=== PATIENT | male | born 1980 | race Caucasian/White ===

== ENCOUNTER 2017-03-15 22:58 | Inpatient (IN) | payer OTHER ==
[~2017-03-15] VITALS: Ht 175.3 cm; Wt 79.7 kg
[~2017-03-15 22:58] MED LIST: CLON.5 PO; DIVA250ER PO; REME30TA2 PO; RISP2TAB2 PO
[2017-03-15 23:04] VITALS: BP 146/84; PULSE 78; RESP 18; TEMP 97.8; O2SAT 98
[2017-03-15] MEDS ORDERED: CLON.5 PO (23:11)
[2017-03-15] MEDS ORDERED: REME30TA PO (23:11)
[2017-03-15 23:15] VITALS: RESP 18; O2SAT 97
[2017-03-15] MEDS ORDERED: SODIUM CHLORIDE 0.9% FLUSH 10 ML FLUSH IVF PRN (23:15)
[2017-03-15 23:16] VITALS: BP 122/61; PULSE 68; RESP 18; O2SAT 97
--- NOTE | 2017-03-15 23:16 | PD ---
HPI Chief Complaint: OD/ Ingestion Time Seen by Provider: 23:12 Travel History International Travel<30 days: No Contact w/Intl Traveler<30days: No Traveled to known affect area: No History of Present Illness HPI 36-year-old male presents to the emergency department by EMS transport from home after calling 911 admitting to an intentional trazodone overdose. Patient reportedly took the entire one-month supply of trazodone around 9:30 PM this evening. Patient is a and is followed at the OR for posttraumatic stress disorder. Patient is been suicidal and depressed. Patient intentionally ingested an entire bottle of trazodone. Patient does not know the dosage of the medication had the prescription filled at the OR and does not do the date that he had the prescription filled reportedly. Patient also admits to alcohol ingestion. Patient takes other multiple medications but denies ingestion of these medications. Patient called the police himself and he has a Young act. Patient was given a one-time dose of Zofran en route to the hospital had a small amount of loose stool. Patient has chronic back pain and complains of no other concerns or complaints. PFSH Past Medical History Narrative Medical Asthma, bipolar/anxiety depression, insomnia, post traumatic stress disorder, schizophrenia, vasectomy tonsillectomy; tobacco use alcohol use; nursing notes reviewed Asthma: Yes Bipolar Disorder: Yes Anxiety: Yes Depression: Yes Diminished Hearing: No Insomnia: Yes Psychiatric: Yes Immunizations Current: Yes Schizophrenia: Yes Past Surgical History Other Surgery: Yes (VASECTOMY) Social History Alcohol Use: Yes (RARELY) Tobacco Use: Yes (1 PPD) Substance Use: Yes Allergies-Medications (Allergen,Severity, Reaction): Coded Allergies: bupropion (Verified Allergy, Severe, 03/15/17) tramadol (Verified Allergy, Severe, 03/15/17) Reported Meds & Prescriptions Reported Meds & Active Scripts Active Reported Klonopin (Clonazepam) 0.5 Mg Tab 0.5 Mg PO TID Remeron (Mirtazapine) 30 Mg Tab 30 Mg PO HS Review of Systems Except as stated in HPI: all other systems reviewed are Neg Physical Exam Narrative GENERAL: Well-developed well-nourished male in no acute distress no respiratory distress mildly drowsy GCS 15 SKIN: Warm and dry. HEAD: Atraumatic. Normocephalic. EYES: Pupils equal and round. No scleral icterus. No injection or drainage. ENT: No nasal bleeding or discharge. Mucous membranes pink and moist. NECK: Trachea midline. No JVD. CARDIOVASCULAR: Regular rate and rhythm. RESPIRATORY: No accessory muscle use. Clear to auscultation. Breath sounds equal bilaterally. GASTROINTESTINAL: Abdomen soft, non-tender, nondistended. Hepatic and splenic margins not palpable. MUSCULOSKELETAL: Extremities without clubbing, cyanosis, or edema. No obvious deformities. NEUROLOGICAL: Awake and alert. No obvious cranial nerve deficits. Motor grossly within normal limits. Five out of 5 muscle strength in the arms and legs. Normal speech. PSYCHIATRIC: Appropriate mood and affect; insight and judgment normal. Data Data Last Documented VS Vital Signs Date Time Temp Pulse Resp B/P (MAP) Pulse Ox O2 Delivery O2 Flow Rate FiO2 03/16/17 02:43 74 18 140/82 (101) 99 Nasal Cannula 2.00 03/15/17 23:04 97.8 Orders Orders Electrocardiogram (03/15/17 23:12) Complete Blood Count With Diff (03/15/17 23:12) Comprehensive Metabolic Panel (03/15/17 23:12) Prothrombin Time / Inr (Pt) (03/15/17 23:12) Act Partial Throm Time (Ptt) (03/15/17 23:12) Urinalysis - C+S If Indicated (03/15/17 23:12) Chest, Single Ap (03/15/17 23:12) Blood Glucose (03/15/17 23:12) Iv Access Insert/Monitor (03/15/17 23:12) Ecg Monitoring (03/15/17 23:12) Oximetry (03/15/17 23:12) Psych Screen (03/15/17 23:12) Sodium Chloride 0.9% Flush (Ns Flush) (03/15/17 23:15) Call Poison Control (03/15/17 23:12) Drug Screen, Random Urine (03/15/17 23:12) Alcohol (Ethanol) (03/15/17 23:12) Salicylates (Aspirin) (03/15/17 23:12) Tylenol (Acetaminophen) (03/15/17 23:12) Sodium Chlor 0.9% 1000 Ml Inj (Ns 1000 M (03/15/17 23:15) Potassium Chloride (Kcl) (03/16/17 01:00) Potassium Chlor 10 Meq Premix (Kcl 10 Me (03/16/17 01:00) Electrocardiogram (03/16/17 ) Comprehensive Metabolic Panel (03/16/17 03:18) Tylenol (Acetaminophen) (03/16/17 03:18) Labs Laboratory Tests Test 03/15/17 23:10 03/15/17 23:15 03/16/17 03:21 Urine Color COLORLESS Urine Turbidity CLEAR Urine pH 6.0 Urine Specific [place] 1.001 Urine Protein NEG mg/dL Urine Glucose (UA) NEG mg/dL Urine Ketones NEG mg/dL Urine Occult Blood NEG Urine Nitrite NEG Urine Bilirubin NEG Urine Urobilinogen LESS THAN 2.0 MG/DL Urine Leukocyte Esterase NEG Urine RBC LESS THAN 1 /hpf Urine WBC 1 /hpf Microscopic Urinalysis Comment CULT NOT INDICATED Urine Opiates Screen NEG Urine Barbiturates Screen NEG Urine Amphetamines Screen NEG Urine Benzodiazepines Screen NEG Urine Cocaine Screen NEG Urine Cannabinoids Screen NEG White Blood Count 11.5 TH/MM3 Red Blood Count 4.84 MIL/MM3 Hemoglobin 13.9 GM/DL Hematocrit 39.8 % Mean Corpuscular Volume 82.2 FL Mean Corpuscular Hemoglobin 28.7 PG Mean Corpuscular Hemoglobin Concent 34.9 % Red Cell Distribution Width 13.0 % Platelet Count 316 TH/MM3 Mean Platelet Volume 6.5 FL Neutrophils (%) (Auto) 69.9 % Lymphocytes (%) (Auto) 22.5 % Monocytes (%) (Auto) 5.3 % Eosinophils (%) (Auto) 1.5 % Basophils (%) (Auto) 0.8 % Neutrophils # (Auto) 8.0 TH/MM3 Lymphocytes # (Auto) 2.6 TH/MM3 Monocytes # (Auto) 0.6 TH/MM3 Eosinophils # (Auto) 0.2 TH/MM3 Basophils # (Auto) 0.1 TH/MM3 CBC Comment DIFF FINAL Differential Comment Prothrombin Time 11.8 SEC Prothromb Time International Ratio 1.1 RATIO Activated Partial Thromboplast Time 28.1 SEC Blood Urea Nitrogen 3 MG/DL 3 MG/DL Creatinine 0.81 MG/DL 0.87 MG/DL Random Glucose 99 MG/DL 99 MG/DL Total Protein 7.2 GM/DL 7.0 GM/DL Albumin 3.5 GM/DL 3.3 GM/DL Calcium Level 8.2 MG/DL 8.0 MG/DL Alkaline Phosphatase 74 U/L 77 U/L Aspartate Amino Transf (AST/SGOT) 13 U/L 12 U/L Alanine Aminotransferase (ALT/SGPT) 17 U/L 19 U/L Total Bilirubin 0.2 MG/DL 0.2 MG/DL Sodium Level 140 MEQ/L 144 MEQ/L Potassium Level 2.9 MEQ/L 3.7 MEQ/L Chloride Level 107 MEQ/L 112 MEQ/L Carbon Dioxide Level 22.9 MEQ/L 23.9 MEQ/L Anion Gap 10 MEQ/L 8 MEQ/L Estimat Glomerular Filtration Rate 107 ML/MIN 99 ML/MIN Salicylates Level 4.3 MG/DL Acetaminophen Level LESS THAN 2.0 MCG/ML LESS THAN 2.0 MCG/ML Ethyl Alcohol Level 184 MG/DL MDM Medical Decision Making Medical Screen Exam Complete: Yes Emergency Medical Condition: Yes Medical Record Reviewed: Yes Interpretation(s) EKG normal sinus rhythm rate [address] elevation nonspecific T-wave abnormality anteroseptally CBC & BMP Diagram 03/15/17 23:15 Total Protein 7.2, Albumin 3.5, Calcium Level 8.2 L, Alkaline Phosphatase 74, Aspartate Amino Transf (AST/SGOT) 13 L, Alanine Aminotransferase (ALT/SGPT) 17, Total Bilirubin 0.2 Vital Signs Date Time Temp Pulse Resp B/P (MAP) Pulse Ox O2 Delivery O2 Flow Rate FiO2 03/16/17 01:40 74 16 135/74 (94) 98 Room Air 03/15/17 23:47 69 18 141/82 (101) 97 Room Air 03/15/17 23:16 68 18 122/61 (81) 97 Room Air 03/15/17 23:15 18 97 Room Air 03/15/17 23:04 97.8 78 18 146/84 (104) 98 Serum alcohol: 184, elevated Urine drug screen is negative Acetaminophen level less than 2, not elevated Salicylate level IV.3, not elevated Differential Diagnosis Polysubstance overdose, alcohol intoxication, suicidal ideation, depression, arrhythmia, likely disturbance Narrative Course Patient placed on media monitor IV access obtained specimens collected and sent for resulting bedside glucose ordered along with EKG which shows sinus rhythm no acute ST elevation nonspecific T-wave inversion without ST segment depression anteroseptally. Poison control called Patient resting comfortably readily awakened able to tolerate oral hydration and oral potassium replacement administered along with 1 aliquot 10 mEq KCl IV Patient administered IV fluids Lab results found to be grossly within normal range except for potassium of 2.9 and elevated serum alcohol level; magnesium level pending Patient sleeping off serum alcohol of 250 Patient @ 1:50 identified to have serum magnesium 1.01 g magnesium administered IV @ 3:17 UOOB ro BR; EKG sinus rhythm rate 73 nonspecific T-wave changes no acute ST elevation or injury pattern; poison control up-to-date At 5:16 AM patient is sleeping awakened still name answers questions appropriately when asked how he feels feels reports "I'm tired" Diagnosis Primary Impression: Alcohol intoxication Additional Impressions: Minor closed head injury Electrolyte disturbance Ivonne Aguilar MD Mar 15, 2017 23:16
[2017-03-15] MEDS: SODIUM CHLOR 0.9% 1000 ML INJ 1,000 ML IV SCH (23:19)
[2017-03-15 23:33] LABS: BASOPHIL # 0.1 TH/MM3 (0-0.2); BASOPHIL % 0.8 % (0.0-2.0); EOSINOPHIL # 0.2 TH/MM3 (0-0.4); EOSINOPHIL % 1.5 % (0.0-4.0); HEMATOCRIT 39.8 % (39.0-51.0); HEMO FLAGS DIFF FINAL; LYMPH % 22.5 % (9.0-44.0); LYMPHOCYTE # 2.6 TH/MM3 (1.0-4.8); MEAN CELL VOLUME 82.2 FL (80.0-100.0); MEAN CORPUSCULAR HEMOGLOBIN 28.7 PG (27.0-34.0); MEAN CORPUSCULAR HGB CONC 34.9 % (32.0-36.0); MONO % 5.3 % (0.0-8.0); NEUT % 69.9 % (16.0-70.0); PLATELET COUNT 316 TH/MM3 (150-450); RED BLOOD COUNT 4.84 MIL/MM3 (4.50-5.90); WHITE BLOOD COUNT 11.5 TH/MM3 (4.0-11.0)
[2017-03-15 23:42] LABS: BLOOD, URINE NEG (NEG); GLUCOSE,URINE NEG (NEG); KETONE, URINE NEG (NEG); NITRITE,URINE NEG (NEG); URINE COLOR COLORLESS (YELLW/STRAW)
[2017-03-15 23:43] LABS: COMMENT (UR) CULT NOT INDICATED; CULTURE IF INDICATED CULT NOT INDICATED
[2017-03-15 23:47] VITALS: BP 141/82; PULSE 69; RESP 18; O2SAT 97
[2017-03-15 23:47] LABS: APTT (PATIENT) 28.1 SEC (24.3-30.1); INTERNATIONAL NORMALIZED RATIO 1.1 RATIO; PROTHROMBIN TIME - PATIENT 11.8 SEC (9.8-11.6)
--- NOTE | 2017-03-15 23:51 | RADRPT ---
EXAM DATE/TIME: 03/15/2017 23:14 [facility] COMPARISON: No previous studies available for comparison. INDICATIONS : Syncopal episode. MEDICAL HISTORY : None. SURGICAL HISTORY : None. ENCOUNTER: Initial ACUITY: 1 day PAIN SCORE: 0/10 LOCATION: Bilateral chest FINDINGS: A single view of the chest demonstrates the lungs to be symmetrically aerated without evidence of mas s, infiltrate or effusion. The cardiomediastinal contours are unremarkable. Osseous structures are intact. CONCLUSION: 1. No acute cardiopulmonary disease. Jeffry Ashton MD on March 15, 2017 at 23:49 Board Certified Radiologist. This report was verified electronically.
[2017-03-16 00:23] LABS: ACETAMINOPHEN LESS THAN 2.0 MCG/ML (10.0-30.0); ALCOHOL 184 MG/DL (0-5); ALKALINE PHOSPHATASE 74 U/L (45-117); ALT (GPT) 17 U/L (12-78); ANION GAP 10 MEQ/L (5-15); AST (GOT) 13 U/L (15-37); BICARBONATE 22.9 MEQ/L (21.0-32.0); BLOOD UREA NITROGEN 3 MG/DL (7-18); CHLORIDE 107 MEQ/L (98-107); GLOMERULAR FILTRATION RATE 107 ML/MIN (>89); SODIUM (NA) 140 MEQ/L (136-145); TOTAL BILIRUBIN ADULT 0.2 MG/DL (0.2-1.0)
[2017-03-16 00:25] LABS: POTASSIUM 2.9 MEQ/L (3.5-5.1)
[2017-03-16] MEDS ORDERED: POTASSIUM CHLOR 10 MEQ PREMIX 100 ML IV ONE (01:00)
[2017-03-16] MEDS ORDERED: POTASSIUM CHLORIDE 20 MEQ CONTROLLED RELEASE TAB PO ONE (01:00)
[2017-03-16 01:40] VITALS: BP 135/74; PULSE 74; RESP 16; O2SAT 98
[2017-03-16 02:43] VITALS: BP 140/82; PULSE 74; RESP 18; O2SAT 99
[2017-03-16 04:04] LABS: ACETAMINOPHEN LESS THAN 2.0 MCG/ML (10.0-30.0); ALKALINE PHOSPHATASE 77 U/L (45-117); ALT (GPT) 19 U/L (12-78); ANION GAP 8 MEQ/L (5-15); AST (GOT) 12 U/L (15-37); BICARBONATE 23.9 MEQ/L (21.0-32.0); BLOOD UREA NITROGEN 3 MG/DL (7-18); CHLORIDE 112 MEQ/L (98-107); GLOMERULAR FILTRATION RATE 99 ML/MIN (>89); POTASSIUM 3.7 MEQ/L (3.5-5.1); SODIUM (NA) 144 MEQ/L (136-145); TOTAL BILIRUBIN ADULT 0.2 MG/DL (0.2-1.0)
[2017-03-16 06:15] VITALS: BP 134/74; PULSE 74; RESP 18; O2SAT 97
[2017-03-16 06:57] VITALS: BP 125/59; PULSE 70; RESP 18; O2SAT 100
[2017-03-16] MEDS: SODIUM CHLOR 0.9% 1000 ML INJ 1,000 ML IV SCH ×3 (07:15→23:15)
[2017-03-16 10:46] VITALS: BP 128/65; PULSE 73; RESP 18
--- NOTE | 2017-03-16 12:58 | PD ---
History of Present Illness Chief Complaint: OD/ Ingestion Time Seen by Provider: 12:40 Travel History International Travel<30 Days: No Contact w/Intl Traveler<30days: No Known affected area: No Legal Status Legal Status: Young Act Young Act Signed By: Damián Young Act Comment: OFFICER RENEE AYALA #[id number] CASE # [id number] History of Present Illness: History of Present Illness HPI 36-year-old male [employer] with history of PTSD, depression who presents to the emergency department by EMS under a Young act. The report alleges that he called 911 requesting help because he was having suicidal thoughts. When police arrived he informed them he had overdosed on " a whole month worth of Trazodone" as a suicide attempt. He reports that earlier in the day there was a helicopter flying over his home and he began to experience flashbacks that " set me off". He also drank some alcohol during the day and presented with BAL of 184. He denies that he drinks on a daily basis. He reports that he has been feeling overwhelmed with caring for his grandparents, is experiencing impaired sleep with difficulty falling asleep and staying asleep, increased irritability, lack of energy. He feels that his current medications are not working to manage his current symptoms. He is followed by the [place] outpatient clinic and reports medication compliance. . PFSH Past Medical History Asthma: Yes Bipolar Disorder: Yes Anxiety: Yes Depression: Yes Diminished Hearing: No Hypertension: Yes Insomnia: Yes Psychiatric: Yes Immunizations Current: Yes Schizophrenia: Yes Seizures: Yes Tetanus Vaccination: > 5 Years Influenza Vaccination: Yes Past Surgical History Other Surgery: Yes (VASECTOMY) Psychiatric History Psychiatric History Hx Psychiatric Treatment: HX. OF PTSD, MAJOR DEPRESSION, BIPOLAR Has had at least 6 lifetime psychiatric admissions with multiple young acts. Last [facility] [place] [place] psychiatric admission in 2012. Now followed by [place] outpatiet[place] clincic. Six previous suicide attempts. History of Inpatient Treatment: Yes ([place] and [place].) Guns or firearms in home: No Social History Born in [place]. . Living with grandparents. Served in the [employer] from 2003 to 2009. On service connected disability. Hx Alcohol Use: Yes Hx Tobacco Use: Yes (1/2 PPD) Hx Substance Use: No Substance Use Type: Alcohol Hx of Substance Use Treatment: No Family Psychiatric History Father w PTSD, schizophrenia Allergies-Medications (Allergen,Severity, Reaction): Coded Allergies: bupropion (Verified Allergy, Severe, 03/15/17) tramadol (Verified Allergy, Severe, 03/15/17) Reported Meds & Prescriptions Reported Meds & Active Scripts Active Reported Klonopin (Clonazepam) 0.5 Mg Tab 0.5 Mg PO TID Remeron (Mirtazapine) 30 Mg Tab 30 Mg PO HS Review of Systems Gastrointestinal: COMPLAINS OF: Abdominal pain, Diarrhea Musculoskeletal: COMPLAINS OF: Joint pain, Back pain, Neck pain Mental Status Examination Appearance: Appropriate (dressed in [facility]. Maintaining basic hygiene. ) Consciousness: Alert Orientation: x4 Motor Activity: Normal gait Speech: Unremarkable Language: Adequate Fund of Knowledge: Adequate Attention and Concentration: Adequate Memory: Unremarkable Mood: Other (depressed) Affect: Appropriate Thought Process & Associations: Intact, Logical, Goal directed Thought Content: Appropriate Hallucination Type: None Delusion Type: None Suicidal Ideation: Yes Suicidal Plan: Yes Suicidal Intention: No Homicidal Ideation: No Homicidal Plan: No Homicidal Intention: No Insight: Fair Judgment: Impulsive MDM Medical Decision Making Medical Record Reviewed: Yes Assessment/Plan 36-year-old male [employer] with history of PTSD, depression who presents to the emergency department by EMS under a Young act. The report alleges that he called 911 requesting help because he was having suicidal thoughts. When police arrived he informed them he had overdosed on " a whole month worth of Trazodone" as a suicide attempt. He reports that earlier in the day there was a helicopter flying over his home and he began to experience flashbacks that " set me off". He also drank some alcohol during the day and presented with BAL of 184. He denies that he drinks on a daily basis. He reports that he has been feeling overwhelmed with caring for his grandparents, is experiencing impaired sleep with difficulty falling asleep and staying asleep, increased irritability, lack of energy. He feels that his current medications are not working to manage his current symptoms. Satishn unable to contract for his safety at [facility] time. Meets criteria for inpatient psychiatric treatment for stabilization and safety. Orders Orders Electrocardiogram (03/15/17 23:12) Complete Blood Count With Diff (03/15/17 23:12) Comprehensive Metabolic Panel (03/15/17 23:12) Prothrombin Time / Inr (Pt) (03/15/17 23:12) Act Partial Throm Time (Ptt) (03/15/17 23:12) Urinalysis - C+S If Indicated (03/15/17 23:12) Chest, Single Ap (03/15/17 23:12) Blood Glucose (03/15/17 23:12) Iv Access Insert/Monitor (03/15/17 23:12) Ecg Monitoring (03/15/17 23:12) Oximetry (03/15/17 23:12) Psych Screen (03/15/17 23:12) Sodium Chloride 0.9% Flush (Ns Flush) (03/15/17 23:15) Call Poison Control (03/15/17 23:12) Drug Screen, Random Urine (03/15/17 23:12) Alcohol (Ethanol) (03/15/17 23:12) Salicylates (Aspirin) (03/15/17 23:12) Tylenol (Acetaminophen) (03/15/17 23:12) Sodium Chlor 0.9% 1000 Ml Inj (Ns 1000 M (03/15/17 23:15) Potassium Chloride (Kcl) (03/16/17 01:00) Potassium Chlor 10 Meq Premix (Kcl 10 Me (03/16/17 01:00) Electrocardiogram (03/16/17 ) Comprehensive Metabolic Panel (03/16/17 03:18) Tylenol (Acetaminophen) (03/16/17 03:18) Diet Regular Basic (03/16/17 Breakfast) Diet Regular Basic (03/16/17 Lunch) Dicyclomine (Bentyl) (03/16/17 13:00) Acetaminophen (Tylenol) (03/16/17 13:00) Results Vital Signs Date Time Temp Pulse Resp B/P (MAP) Pulse Ox O2 Delivery O2 Flow Rate FiO2 03/16/17 10:46 73 18 128/65 (86) Room Air 03/16/17 06:57 70 18 125/59 (81) 100 Room Air 03/16/17 06:44 03/16/17 06:15 74 18 134/74 (94) 97 Room Air 03/16/17 02:43 74 18 140/82 (101) 99 Nasal Cannula 2.00 03/16/17 01:40 74 16 135/74 (94) 98 Room Air 03/15/17 23:47 69 18 141/82 (101) 97 Room Air 03/15/17 23:16 68 18 122/61 (81) 97 Room Air 03/15/17 23:15 18 97 Room Air 03/15/17 23:04 97.8 78 18 146/84 (104) 98 Laboratory Tests Test 03/15/17 23:10 03/15/17 23:15 03/16/17 03:21 Urine Color COLORLESS Urine Turbidity CLEAR Urine pH 6.0 Urine Specific [place] 1.001 Urine Protein NEG Urine Glucose (UA) NEG Urine Ketones NEG Urine Occult Blood NEG Urine Nitrite NEG Urine Bilirubin NEG Urine Urobilinogen LESS THAN 2.0 Urine Leukocyte Esterase NEG Urine RBC LESS THAN 1 Urine WBC 1 Microscopic Urinalysis Comment CULT NOT INDICATED Urine Opiates Screen NEG Urine Barbiturates Screen NEG Urine Amphetamines Screen NEG Urine Benzodiazepines Screen NEG Urine Cocaine Screen NEG Urine Cannabinoids Screen NEG White Blood Count 11.5 Red Blood Count 4.84 Hemoglobin 13.9 Hematocrit 39.8 Mean Corpuscular Volume 82.2 Mean Corpuscular Hemoglobin 28.7 Mean Corpuscular Hemoglobin Concent 34.9 Red Cell Distribution Width 13.0 Platelet Count 316 Mean Platelet Volume 6.5 Neutrophils (%) (Auto) 69.9 Lymphocytes (%) (Auto) 22.5 Monocytes (%) (Auto) 5.3 Eosinophils (%) (Auto) 1.5 Basophils (%) (Auto) 0.8 Neutrophils # (Auto) 8.0 Lymphocytes # (Auto) 2.6 Monocytes # (Auto) 0.6 Eosinophils # (Auto) 0.2 Basophils # (Auto) 0.1 CBC Comment DIFF FINAL Differential Comment Prothrombin Time 11.8 Prothromb Time International Ratio 1.1 Activated Partial Thromboplast Time 28.1 Blood Urea Nitrogen 3 3 Creatinine 0.81 0.87 Random Glucose 99 99 Total Protein 7.2 7.0 Albumin 3.5 3.3 Calcium Level 8.2 8.0 Alkaline Phosphatase 74 77 Aspartate Amino Transf (AST/SGOT) 13 12 Alanine Aminotransferase (ALT/SGPT) 17 19 Total Bilirubin 0.2 0.2 Sodium Level 140 144 Potassium Level 2.9 3.7 Chloride Level 107 112 Carbon Dioxide Level 22.9 23.9 Anion Gap 10 8 Estimat Glomerular Filtration Rate 107 99 Salicylates Level 4.3 Acetaminophen Level LESS THAN 2.0 LESS THAN 2.0 Ethyl Alcohol Level 184 Diagnosis Primary Impression: PTSD (post-traumatic stress disorder) Additional Impression: Alcohol intoxication Admitting Information Admitting Physician Requests: Admit Problem Qualifiers Additional Impression: Alcohol intoxication Qualified Codes: F10.920 - Alcohol use, unspecified with intoxication, uncomplicated Jyothi Tse [facility] Mar 16, 2017 12:57
[2017-03-16] MEDS ORDERED: ACETAMINOPHEN 325 MG TAB PO ONE (13:00)
[2017-03-16] MEDS ORDERED: DICYCLOMINE HCL 10 MG CAP PO ONE (13:00)
[2017-03-16] MEDS ORDERED: ONDANSETRON ODT 4 MG TAB PO ONE ×2 (13:45→20:30)
[2017-03-16] MEDS ORDERED: ACETAMINOPHEN 325 MG TAB PO PRN (14:00)
[2017-03-16] MEDS ORDERED: MAGNESIUM HYDROXIDE SUSP 30 ML CUP PO PRN (14:00)
[2017-03-16] MEDS ORDERED: ALUMINUM/MAGNESIUM/SIMETH 30 ML CUP PO PRN (14:00)
[2017-03-16 15:50] VITALS: BP 139/75; PULSE 71; RESP 17; TEMP 97.9; O2SAT 99
[2017-03-16] MEDS ORDERED: ALUMINUM/MAGNESIUM/SIMETH 30 ML CUP PO ONE (17:00)
[2017-03-16] MEDS: PANTOPRAZOLE SOD 40 MG DELAYED RELEASE TAB PO SCH (17:00)
--- NOTE | 2017-03-16 17:03 | PD.CONS ---
HPI Service [facility] Consult Requested By Psychiatry team Reason for Consult Abdominal pain, overdose on trazodone Primary Care Physician [facility] Diagnoses: History of Present Illness Written by Abdiel Negrete, acting as scribe for Dr. Tran on 03/16/17 at 17 :03. Patient is a 36-year-old male with primary medical history of PTSD, asthma who came into the hospital under [place] act secondary to trazodone overdose. He is now admitted to inpatient psychiatry unit for further evaluation. Consulted for abdominal pain, diarrhea. Patient seen and examined today. Complaints of abdominal pain left lower quadrant area, 10 over 10, associated with nausea, vomiting, diarrhea, nonradiating, aggravated by movement, unable to know what relieves the pain. States the diarrhea started about 2 days ago. Reports being cold but doesn't remember having fevers. States that he he felt the abdominal pain is the same when he had his colon Infected before states it was diverticulitis about 2-3 years ago. Reports acid reflux. Denies chest pain, palpitations, headaches, dizziness. Denies dysuria. Denies shortness of breath or dyspnea. Review of Systems Except as stated in HPI: all other systems reviewed are Neg Past Family Social History Allergies: Coded Allergies: bupropion (Verified Allergy, Severe, 03/15/17) tramadol (Verified Allergy, Severe, 03/15/17) Past Medical History PTSD Asthma Bipolar disorder Acid reflux Diverticulitis Past Surgical History Vasectomy Neck fusion C5 to C6 Shoulder surgery Reported Medications Reported Meds & Active Scripts Active Reported Klonopin (Clonazepam) 0.5 Mg Tab 0.5 Mg PO TID Remeron (Mirtazapine) 30 Mg Tab 30 Mg PO HS Active Ordered Medications Current Medications Medications (Trade) Dose Ordered Sig/Ty Route Start Time Stop Time Status Last Admin (NS Flush) 2 ml UNSCH PRN IVF 03/15/17 23:15 Sodium Chloride 1,000 ml @ 125 mls/hr Q8H IV 03/15/17 23:15 03/15/17 23:19 (Tylenol) 650 mg Q4H PRN PO 03/16/17 14:00 (Milk Of Magnesia Liq) 30 ml DAILY PRN PO 03/16/17 14:00 (Mag-Al Plus Susp Liq) 30 ml Q6H PRN PO 03/16/17 14:00 (Mag-Al Plus Susp Liq) 30 ml ONCE ONCE PO 03/16/17 17:00 03/16/17 17:01 UNV (Protonix) 40 mg DAILY PO 03/16/17 17:00 UNV Family History Father had PTSD Social History Rare alcohol use but reports drank 3-4 beers prior to hospitalization Current a smoker, 2 pack per day Denies illicit drug use Physical Exam Vital Signs Vital Signs Date Time Temp Pulse Resp B/P (MAP) Pulse Ox O2 Delivery O2 Flow Rate FiO2 03/16/17 15:50 97.9 71 17 139/75 (96) 99 03/16/17 10:46 73 18 128/65 (86) Room Air 03/16/17 06:57 70 18 125/59 (81) 100 Room Air 03/16/17 06:44 03/16/17 06:15 74 18 134/74 (94) 97 Room Air 03/16/17 02:43 74 18 140/82 (101) 99 Nasal Cannula 2.00 03/16/17 01:40 74 16 135/74 (94) 98 Room Air 03/15/17 23:47 69 18 141/82 (101) 97 Room Air 03/15/17 23:16 68 18 122/61 (81) 97 Room Air 03/15/17 23:15 18 97 Room Air 03/15/17 23:04 97.8 78 18 146/84 (104) 98 Physical Exam GENERAL: This is a well-nourished, well-developed patient, in no apparent distress. SKIN: Warm and dry. HEAD: Atraumatic. Normocephalic. No temporal or scalp tenderness. EYES: Pupils equal round and reactive. Extraocular motions intact. No scleral icterus. No injection or drainage. ENT: Nose without bleeding. Throat without erythema. Uvula midline. Airway patent. NECK: Trachea midline. No JVD or lymphadenopathy. Supple, nontender, no meningeal signs. CARDIOVASCULAR: Regular rate and rhythm without murmurs, gallops, or rubs. RESPIRATORY: Clear to auscultation. Breath sounds equal bilaterally. No wheezes , rales, or rhonchi. GASTROINTESTINAL: Abdomen soft, nondistended. Left lower quadrant tender to light touch. Right quadrant nontender. MUSCULOSKELETAL: Extremities without clubbing, cyanosis, or edema. NEUROLOGICAL: Awake and alert. Cranial nerves II through XII intact. Motor and sensory grossly within normal limits. Normal speech. Laboratory Laboratory Tests Test 03/15/17 23:10 03/15/17 23:15 03/16/17 03:21 Urine Color COLORLESS Urine Turbidity CLEAR Urine pH 6.0 Urine Specific [place] 1.001 Urine Protein NEG Urine Glucose (UA) NEG Urine Ketones NEG Urine Occult Blood NEG Urine Nitrite NEG Urine Bilirubin NEG Urine Urobilinogen LESS THAN 2.0 Urine Leukocyte Esterase NEG Urine RBC LESS THAN 1 Urine WBC 1 Microscopic Urinalysis Comment CULT NOT INDICATED Urine Opiates Screen NEG Urine Barbiturates Screen NEG Urine Amphetamines Screen NEG Urine Benzodiazepines Screen NEG Urine Cocaine Screen NEG Urine Cannabinoids Screen NEG White Blood Count 11.5 Red Blood Count 4.84 Hemoglobin 13.9 Hematocrit 39.8 Mean Corpuscular Volume 82.2 Mean Corpuscular Hemoglobin 28.7 Mean Corpuscular Hemoglobin Concent 34.9 Red Cell Distribution Width 13.0 Platelet Count 316 Mean Platelet Volume 6.5 Neutrophils (%) (Auto) 69.9 Lymphocytes (%) (Auto) 22.5 Monocytes (%) (Auto) 5.3 Eosinophils (%) (Auto) 1.5 Basophils (%) (Auto) 0.8 Neutrophils # (Auto) 8.0 Lymphocytes # (Auto) 2.6 Monocytes # (Auto) 0.6 Eosinophils # (Auto) 0.2 Basophils # (Auto) 0.1 CBC Comment DIFF FINAL Differential Comment Prothrombin Time 11.8 Prothromb Time International Ratio 1.1 Activated Partial Thromboplast Time 28.1 Blood Urea Nitrogen 3 3 Creatinine 0.81 0.87 Random Glucose 99 99 Total Protein 7.2 7.0 Albumin 3.5 3.3 Calcium Level 8.2 8.0 Alkaline Phosphatase 74 77 Aspartate Amino Transf (AST/SGOT) 13 12 Alanine Aminotransferase (ALT/SGPT) 17 19 Total Bilirubin 0.2 0.2 Sodium Level 140 144 Potassium Level 2.9 3.7 Chloride Level 107 112 Carbon Dioxide Level 22.9 23.9 Anion Gap 10 8 Estimat Glomerular Filtration Rate 107 99 Salicylates Level 4.3 Acetaminophen Level LESS THAN 2.0 LESS THAN 2.0 Ethyl Alcohol Level 184 Result Diagram: 03/15/17 5620 03/16/17 0321 Imaging Last Impressions Chest X-Ray 03/15/17 1387 Signed Impressions: Service Date/Time: Wednesday, March 15, 2017 23:14 - CONCLUSION: 1. No acute cardiopulmonary disease. Jeffry Ashton MD Assessment and Plan Problem List: (1) GERD (gastroesophageal reflux disease) ICD Code: K21.9 - Gastro-esophageal reflux disease without esophagitis (2) Tobacco abuse ICD Code: Z72.0 - Tobacco use (3) PTSD (post-traumatic stress disorder) ICD Code: F43.10 - PTSD (post-traumatic stress disorder) Status: Acute (4) Alcohol intoxication ICD Code: F10.929 - Alcohol use, unspecified with intoxication, unspecified Status: Acute Assessment and Plan Patient is a 36-year-old male with primary medical history of PTSD, asthma who came into the hospital under [place] act secondary to trazodone overdose. He is now admitted to inpatient psychiatry unit for further evaluation. Consulted for abdominal pain, diarrhea. Overdose on trazodone - Labs reviewed chemistry within normal except for hypokalemia when patient came in. Has been replaced and now within normal - EKG 73, sinus rhythm with sinus arrhythmia nonspecific T-wave abnormality. QT interval 424 Suspect diverticulitis versus pancreatitis - Abdominal pain left lower quadrant, mild leukocytosis, diarrhea - Pantoprazole 40 mg daily, maalox 1 dose now - CT of the abdomen ordered - May benefit with Cipro and Flagyl - UA negative - Check lipase, amylase - Recheck labs in a.m. Asthma, not in exacerbation - May use DuoNeb's when necessary Tobacco abuse - Counseled for cessation - Nicotine patch PTSD - Managed by psychiatry team DVT prop ambulatory This note was transcribed by yessica Negrete. I, Dr. Uvaldo Raymundo personally performed the history, physical exam, and medical decision making; and confirmed the accuracy of the information in the transcribed note. Authenticated by Dr. Uvaldo Raymundo on 03/16/17 at 17:05. Code Status Full code Discussed Condition With Patient, nursing Problem Qualifiers (1) Alcohol intoxication: Qualified Codes: F10.920 - Alcohol use, unspecified with intoxication, uncomplicated Abdiel Basurto Mar 16, 2017 5:03 pm Uvaldo Goetz MD Mar 16, 2017 5:05 pm
[2017-03-16] MEDS: NICOTINE 21 MG/24 HR PATCH T-DERMAL SCH (17:45)
[2017-03-16] MEDS: clonazePAM 0.5 MG TAB PO SCH (18:00)
[2017-03-16] MEDS ORDERED: DIATRIZOATE MEGLUM/DIATRIZOATE SOD 9 ML CUP PO ONE (20:00)
[2017-03-16 20:01] LABS: AMYLASE 41 U/L (25-115)
[2017-03-16] MEDS: MIRTAZAPINE ODT 30 MG TAB PO SCH (21:24)
--- NOTE | 2017-03-16 21:38 | EKG ---
Date Performed: 03/15/2017 Time Performed: 23:14:25 PTAGE: 36 years EKG: Sinus rhythm NONSPECIFIC T-WAVE ABNORMALITY BORDERLINE ECG NO PREVIOUS TRACING DOCTOR: Mikael Stevenson Interpretating Date/Time 03/16/2017 21:37:13
[2017-03-16] MEDS ORDERED: IOHEXOL 350 MG/ML 10 ML VIAL (for RAD DIAG) IVCONTRAST ONE (22:17)
--- NOTE | 2017-03-16 22:29 | RADRPT ---
EXAM DATE/TIME: 03/16/2017 22:17 [facility] COMPARISON: No previous studies available for comparison. INDICATIONS : Left lower quadrant pain with nausea and vomiting. IV CONTRAST: 100 cc Omnipaque 350 (iohexol) IV ORAL CONTRAST: No oral contrast ingested. RADIATION DOSE: 8.00 CTDIvol (mGy) MEDICAL HISTORY : Hypertension. Diverticulitis. Gastroesophageal reflux disease. SURGICAL HISTORY : None. ENCOUNTER: Initial ACUITY: 2 days PAIN SCALE: 10/10 LOCATION: Left lower quadrant TECHNIQUE: Volumetric scanning of the abdomen and pelvis was performed. Using automated exposure control and ad justment of the mA and/or kV according to patient size, radiation dose was kept as low as reasonably achievable to obtain optimal diagnostic quality images. DICOM format image data is available electro nically for review and comparison. FINDINGS: LOWER LUNGS: The visualized lower lungs are clear. LIVER: Homogeneous density without lesion. There is no dilation of the biliary tree. No calcified gallston es. Gallbladder seen as a contracted luminal structure with no wall thickening SPLEEN: Normal size without lesion. PANCREAS: Within normal limits. KIDNEYS: Normal in size and shape. There is no mass, stone or hydronephrosis. ADRENAL GLANDS: Within normal limits. VASCULAR: There is no aortic aneurysm. BOWEL/MESENTERY: The stomach, small bowel, and colon demonstrate no acute abnormality. There is no free intraperitone al air or fluid. Appendix visualized and is normal. ABDOMINAL WALL: Within normal limits. RETROPERITONEUM: There is no lymphadenopathy. BLADDER: No wall thickening or mass. REPRODUCTIVE: Within normal limits. INGUINAL: There is no lymphadenopathy or hernia. MUSCULOSKELETAL: Within normal limits for patient age. CONCLUSION: Normal examination. Angel Evans MD on March 16, 2017 at 22:26 Board Certified Radiologist. This report was verified electronically.
[2017-03-17 05:34] VITALS: BP 137/83; PULSE 62; RESP 16; TEMP 97.3; O2SAT 96
--- NOTE | 2017-03-17 07:39 | EKG ---
Date Performed: 03/16/2017 Time Performed: 02:41:30 PTAGE: 36 years EKG: Sinus rhythm WITH SINUS ARRHYTHMIA NONSPECIFIC T-WAVE ABNORMALITY BORDERLINE ECG Compared to PREVIOUS TRACING , the ST-T wave changes have improved. PREVIOUS TRACING DOCTOR: Mikael Stevenson Interpretating Date/Time 03/17/2017 07:38:31
[2017-03-17] MEDS ORDERED: ONDANSETRON ODT 4 MG TAB PO PRN (08:00)
[2017-03-17] MEDS: DICYCLOMINE HCL 10 MG CAP PO SCH ×4 (08:43→21:00)
[2017-03-17] MEDS: PANTOPRAZOLE SOD 40 MG DELAYED RELEASE TAB PO SCH (08:43)
[2017-03-17] MEDS: clonazePAM 0.5 MG TAB PO SCH ×3 (08:43→18:59)
[2017-03-17] MEDS: NICOTINE 21 MG/24 HR PATCH T-DERMAL SCH (08:44)
[2017-03-17] MEDS: REMOVE OLD PATCH T-DERMAL SCH (09:00)
[2017-03-17 10:44] LABS: ANION GAP 8 MEQ/L (5-15); BICARBONATE 27.6 MEQ/L (21.0-32.0); BLOOD UREA NITROGEN 9 MG/DL (7-18); CHLORIDE 103 MEQ/L (98-107); GLOMERULAR FILTRATION RATE 72 ML/MIN (>89); HDL CHOLESTEROL 27.3 MG/DL (40.0-60.0); SODIUM (NA) 139 MEQ/L (136-145)
[2017-03-17] MEDS ORDERED: POTASSIUM CHLORIDE 20 MEQ CONTROLLED RELEASE TAB PO ONE (11:30)
--- NOTE | 2017-03-17 13:11 | PD.PN.STU ---
Subjective Remarks pt is a 36 y.o male with a hx of Bipolar, schizophrenia, Depression, PTSD, with multiple Suicidal attempts who is at the [facility] under [facility] secondary to medication OD (Trazadone). Pt states that he has been having numbers of stressors in his life including going through a divorce, recently ending a relationship with his girlfriend, and coming to [place] from [place] to be the primary caregiver to his grandparents. He reports having very depressed mood, difficulty falling asleep, loss of interest in activities he usually enjoys, and decrease appetite. He states that " things just became too much and I couldn't handle it anymore". Pt is an [employer] , and [facility] Per pt, his first suicide attempt was 4 years ago following an episode of PTSD. It led to him getting medically discharged from the [employer]. He has had multiple psychiatric hospitalizations with the latest being a year ago in [place] , also for suicide attempt via overdose. He states that usually Remeron, Oxcarbazepine, Ambien, and clonazepam work great for him. Denies any auditory or visual hallucination. Denies smoking Tobacco; Drinks 3-4 drinks only during social situations (every other week); and denies use of illicit drugs. Objective Vitals Vital Signs Date Time Temp Pulse Resp B/P (MAP) Pulse Ox O2 Delivery O2 Flow Rate FiO2 03/17/17 05:34 97.3 62 16 137/83 (101) 96 03/16/17 15:50 97.9 71 17 139/75 (96) 99 I/O 03/16/17 03/16/17 03/16/17 03/17/17 03/17/17 03/17/17 07:00 15:00 23:00 07:00 15:00 23:00 Intake Total 100 ml 1000 ml Balance 100 ml 1000 ml Intake IV Total 100 ml 1000 ml Result Diagram: 03/15/17 3063 03/17/17 0832 Other Results Laboratory Tests Test 03/15/17 23:10 03/15/17 23:15 03/16/17 03:21 03/16/17 13:21 Urine Specific [place] 1.001 (1.002-1.035) White Blood Count 11.5 TH/MM3 (4.0-11.0) Mean Platelet Volume 6.5 FL (7.0-11.0) Neutrophils # (Auto) 8.0 TH/MM3 (1.8-7.7) Prothrombin Time 11.8 SEC (9.8-11.6) Blood Urea Nitrogen 3 MG/DL (7-18) 3 MG/DL (7-18) Calcium Level 8.2 MG/DL (8.5-10.1) 8.0 MG/DL (8.5-10.1) Aspartate Amino Transf (AST/SGOT) 13 U/L (15-37) 12 U/L (15-37) Potassium Level 2.9 MEQ/L (3.5-5.1) Acetaminophen Level LESS THAN 2.0 MCG/ML LESS THAN 2.0 MCG/ML Ethyl Alcohol Level 184 MG/DL (0-5) Albumin 3.3 GM/DL (3.4-5.0) Chloride Level 112 MEQ/L (98-107) Test 03/17/17 08:32 Potassium Level 3.0 MEQ/L (3.5-5.1) Estimat Glomerular Filtration Rate 72 ML/MIN (>89) Triglycerides Level 425 MG/DL (42-150) HDL Cholesterol 27.3 MG/DL (40.0-60.0) Objective Remarks pt is a well developed, well nourished male that did not seem to be in any acute distress. He is dressed in casual clothing. Appears neat and clean. Has sad mood and his affect was congruent with his mood. his speech was clear with normal tone. He was making appropriate eye contact. Thought process was appropriate except for thoughts of suicide. GENERAL: SKIN: Warm and dry. HEAD: Atraumatic. Normocephalic. EYES: Pupils equal and round. No scleral icterus. No injection or drainage. ENT: No nasal bleeding or discharge. Mucous membranes pink and moist. NECK: Trachea midline. No JVD. CARDIOVASCULAR: Regular rate and rhythm. RESPIRATORY: No accessory muscle use. Clear to auscultation. Breath sounds equal bilaterally. GASTROINTESTINAL: Abdomen soft, non-tender, nondistended. Hepatic and splenic margins not palpable. MUSCULOSKELETAL: Extremities without clubbing, cyanosis, or edema. No obvious deformities. NEUROLOGICAL: Awake and alert. No obvious cranial nerve deficits. Motor grossly within normal limits. Five out of 5 muscle strength in the arms and legs. Normal speech. PSYCHIATRIC: Appropriate mood and affect; insight and judgment normal. Medications and IVs Current Medications Medications (Trade) Dose Ordered Sig/Ty Route Start Time Stop Time Status Last Admin (NS Flush) 2 ml UNSCH PRN IVF 03/15/17 23:15 Sodium Chloride 1,000 ml @ 125 mls/hr Q8H IV 03/15/17 23:15 03/15/17 23:19 (Tylenol) 650 mg Q4H PRN PO 03/16/17 14:00 03/17/17 09:29 (Milk Of Magnesia Liq) 30 ml DAILY PRN PO 03/16/17 14:00 (Mag-Al Plus Susp Liq) 30 ml Q6H PRN PO 03/16/17 14:00 (Protonix) 40 mg DAILY PO 03/16/17 17:00 03/17/17 08:43 (KlonoPIN) 0.5 mg TID PO 03/16/17 18:00 03/17/17 08:43 (Remeron Soltab Odt) 30 mg HS PO 03/16/17 21:00 03/16/17 21:24 (Habitrol 21 Mg Patch.24 Hr) 1 patch DAILY T-DERMAL 03/16/17 17:45 03/17/17 08:44 Miscellaneous Information 1 DAILY T-DERMAL 03/17/17 09:00 (Bentyl) 20 mg QID PO 03/17/17 09:00 03/19/17 08:59 03/17/17 08:43 (Zofran Odt) 4 mg Q6H PRN PO 03/17/17 08:00 03/17/17 12:05 A/P Assessment and Plan 1. Major Depression with suicidal Ideation 2. Bipolar Disorder Jovon Dixon M3 Mar 17, 2017 13:11
--- NOTE | 2017-03-17 14:43 | HHI.HP ---
Provisional Diagnosis Admission Date Mar 16, 2017 at 13:54 [place] I. Bipolar disorder current episode depressed f 31.30 alcohol intoxication, PTSD Certification of Person's Competence To Provide Express and Informed Consent I have personally examined Fahad Liu , a person being served at [facility] on, Mar 17, 2017 14:29. Express and informed consent means consent voluntarily given in writing, by a competent person, after sufficient explanation and disclosure of the subject matter involved to enable the person to make a knowing and willful decision without any element of force, fraud, deceit, duress, or other form of constraint or coercion. This person is 18 years of age or older, is not now known to be incompetent to consent to treatment with a guardian advocate, and does not have a health care surrogate or proxy currently making medical treatment decisions. I have found this person to be one of the following: []xxxx Competent to provide express and informed consent, as defined above, for voluntary admission to this facility and is competent to provide express and informed consent for treatment. He/she has the consistent capacity to make well reasoned, willful, and knowing decisions concerning his or her medical or mental health treatment. The person fully and consistently understands the purpose of the admission for examination/placement and is fully capable of personally exercising all rights assured [place] Incompetent to provide express and informed consent to voluntary admission, and this is incompetent to provide express and informed consent to treatment. The person must be transferred to involuntary status and a petition for a guardian advocate filed with the Circuit Court. [] Refusing to provide express and informed consent to voluntary admission but is competent to provide express and informed consent for treatment. The person must be discharged or transferred to involuntary status. Form shall be completed within 24 hours of a person's arrival at the receiving facility and filed in the clinical record of each person: 1. Admitted on a voluntary basis 2. Permitted to provide express and informed consent to his/her own treatment 3. Allowed to transfer from involuntary to voluntary status 4. Prior to permitting a person to consent to his or her own treatment after having been previously found incompetent to consent to treatment. History of Present Illness Capacity: Has Capacity Psych Chief Complaint: patient suicidal ideation HPI Patient is a 36-year-old white male initially come she under Young act signed a [facility]'s office dated 03/15/17 at 2218 hrs. that document reviewed essentially states Livia now to call 911 requesting help stating he was [place] was [employer] who suffers from PTSD. Then he was having suicidal thoughts. Upon arrival at seen Noe stated he took his entire prescribed month supply of trazodone pills. Noe was cooperative with camera prototyping engineer appointment and began to become very lethargic as [employer] arrived on scene and began treating him. Patient seen screened in the ED urine toxicology negative blood alcohol level of 184. Of inches patient was seen here in 2012 at that time blood alcohol level of 159 I was involved with his care at that time. He was released of medication to [facility]. It appears since that time patient has moved back to the [place] area for well- developed care for his parents who have had various medical and mental health issues, return back here in December of this year to help care for his elderly grandparents. He said his somewhat depressed right now also because he is going through divorce and because he found a girlfriend since moving back to [place] for a brief affair and they have since broken up. Patient does acknowledge poor sleep with PTSD and nightmares. His [facility] psychiatric hospitalizations as mentioned above. [place] and also back in [place]. He has been on various medications in the past with limited success. He states he is attempting to get services through the [facility] has not been successful yet. As mentioned above he has strong family history of mental health issues. Himself denies any physical or sexual abuse. At the present time patient doesn't meet criteria for inpatient psychiatric hospitalization. Though I feel the patient has capacity to sign voluntary to sign for his medications. Thus I'll lift the [employer] act allow him to sign voluntary. Continue him on his medications per the EMR and and Tegretol 100 mg twice a day to the regimen. Hopeless to be fairly short stay and we can get him reconnected with the [facility] here in [facility] Review of Systems Constitutional: DENIES: Diaphoretic episodes, Fatigue, Fever, Weight gain, Weight loss, Chills, Dizziness, Change in appetite, Night Sweats Endocrine: DENIES: Heat/cold intolerance, Polydipsia, Polyuria, Polyphagia Eyes: DENIES: Blurred vision, Diplopia, Eye inflammation, Eye pain, Vision loss , Photosensitivity, Double Vision Ears, nose, mouth, throat: DENIES: Tinnitus, Hearing loss, Vertigo, Nasal discharge, Oral lesions, Throat pain, Hoarseness, Ear Pain, Running Nose, Epistaxis, Sinus Pain, Toothache, Odynophagia Respiratory: DENIES: Apneas, Cough, Snoring, Wheezing, Hemoptysis, Sputum production, Shortness of breath Cardiovascular: DENIES: Chest pain, Palpitations, Syncope, Dyspnea on Exertion , PND, Lower Extremity Edema, Orthopnea, Claudication Gastrointestinal: COMPLAINS OF: Abdominal pain (patient had abdominal MRI and chest x-ray done both negative) Genitourinary: DENIES: Sexual dysfunction, Urinary frequency, Urinary incontinence, Urgency, Hematuria, Dysuria, Nocturia, Penile Discharge, Testicular Pain, Testicular Swelling Musculoskeletal: COMPLAINS OF: Back pain Integumentary: DENIES: Abnormal pigmentation, Nail changes, Pruritus, Rash Hematologic/lymphatic: DENIES: Bruising, Lymphadenopathy Neurologic: DENIES: Abnormal gait, Headache, Localized weakness, Paresthesias, Seizures, Speech Problems, Tremor, Poor Balance Psychiatric: COMPLAINS OF: Depression, Suicidal Ideation Past Psych History Psychological trauma history Patient is an [employer] 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 Violence risk - others (6 mos) Low Violence risk - self (6 mos) Moderate though denies at this time Substance Abuse History Drugs/Alcohol past 12 months Patient had blood alcohol level of 189 on admission, though he minimizes alcohol use states he drinks infrequently but at times to excess Past Family Social History Coded Allergies: bupropion (Verified Allergy, Severe, 03/15/17) tramadol (Verified Allergy, Severe, 03/15/17) Past Medical History Patient medically cleared ED Reported Medications Clonazepam (Klonopin) 0.5 Mg Tab, 0.5 MG PO TID, #90 TAB 0 Refills 03/15/17 Mirtazapine (Remeron) 30 Mg Tab, 30 MG PO HS for Depression Control, #30 TAB 0 Refills 03/15/17 Current Medications Medications (Trade) Dose Ordered Sig/Ty Route Start Time Stop Time Status Last Admin (NS Flush) 2 ml UNSCH PRN IVF 03/15/17 23:15 Sodium Chloride 1,000 ml @ 125 mls/hr Q8H IV 03/15/17 23:15 03/15/17 23:19 (Tylenol) 650 mg Q4H PRN PO 03/16/17 14:00 03/17/17 09:29 (Milk Of Magnesia Liq) 30 ml DAILY PRN PO 03/16/17 14:00 (Mag-Al Plus Susp Liq) 30 ml Q6H PRN PO 03/16/17 14:00 (Protonix) 40 mg DAILY PO 03/16/17 17:00 03/17/17 08:43 (KlonoPIN) 0.5 mg TID PO 03/16/17 18:00 03/17/17 13:10 (Remeron Soltab Odt) 30 mg HS PO 03/16/17 21:00 03/16/17 21:24 (Habitrol 21 Mg Patch.24 Hr) 1 patch DAILY T-DERMAL 03/16/17 17:45 03/17/17 08:44 Miscellaneous Information 1 DAILY T-DERMAL 03/17/17 09:00 (Bentyl) 20 mg QID PO 03/17/17 09:00 03/19/17 08:59 03/17/17 13:10 (Zofran Odt) 4 mg Q6H PRN PO 03/17/17 08:00 03/17/17 12:05 (Tylenol) 650 mg Q4H PRN PO 03/17/17 14:30 UNV (Habitrol 21 Mg Patch.24 Hr) 1 patch DAILY T-DERMAL 03/18/17 09:00 UNV Family Psych History History mental health issues with family Social History Patient 3 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 2) Patient verbal able to access health care Physical Exam Patient seen screened in ED exam reviewed and agreed with at the present time patient sitting quietly in his room nurse Abundio and medical student benjamín present throughout session patient sitting calmly on the edge of his bed he is in no acute distress, no respiratory distress, no complaints of abdominal pain at this time, moves all 4 extremities without difficulty Vital Signs Vital Signs Date Time Temp Pulse Resp B/P (MAP) Pulse Ox O2 Delivery O2 Flow Rate FiO2 03/17/17 05:34 97.3 62 16 137/83 (101) 96 03/16/17 10:46 Room Air 03/16/17 02:43 2.00 Lab Results Test 03/17/17 08:32 Blood Urea Nitrogen 9 MG/DL Creatinine 1.15 MG/DL Random Glucose 96 MG/DL Calcium Level 8.9 MG/DL Sodium Level 139 MEQ/L Potassium Level 3.0 MEQ/L Chloride Level 103 MEQ/L Carbon Dioxide Level 27.6 MEQ/L Anion Gap 8 MEQ/L Estimat Glomerular Filtration Rate 72 ML/MIN Triglycerides Level 425 MG/DL Cholesterol Level 178 MG/DL LDL Cholesterol MG/DL HDL Cholesterol 27.3 MG/DL Cholesterol/HDL Ratio 6.52 RATIO Mental Status Examination Appearance: Appropriate (dressed in [facility]. Maintaining basic hygiene. ) Consciousness: Alert Orientation: x4 Motor Activity: Normal gait Speech: Unremarkable Language: Adequate Fund of Knowledge: Adequate Attention and Concentration: Adequate Memory: Unremarkable Mood: Other (depressed) Affect: Other (good range intensity) Thought Process & Associations: Intact, Logical, Goal directed Thought Content: Appropriate Hallucination Type: None Delusion Type: None Suicidal Ideation: Yes Suicidal Plan: Yes Suicidal Intention: No Homicidal Ideation: No Homicidal Plan: No Homicidal Intention: No Insight: Fair Judgment: Impulsive Assessment & Plan Problem List: (1) Bipolar disorder current episode depressed ICD Codes: F31.30 - Bipolar disorder current episode depressed Status: Acute (2) Alcohol intoxication ICD Codes: F10.929 - Alcohol use, unspecified with intoxication, unspecified Status: Acute (3) PTSD (post-traumatic stress disorder) ICD Codes: F43.10 - PTSD (post-traumatic stress disorder) Status: Acute Assessment & Plan Estimated LOS: 5-7 days at this time patient does meet criteria for involuntary psychiatric assessment. They feel he has capacity to sign voluntary thus I'll lift Young act. Continues medication per the med reconciliation and add Tegretol 100 mg twice a day. 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
--- NOTE | 2017-03-17 15:09 | HHI.PR ---
Subjective Remarks Follow-up visit abdominal pain, nausea, vomiting. Patient seen and examined today. Reports he is feeling a lot better. Able to tolerate by mouth diet slowly. States he has no diarrhea. Abdominal pain has subsided. Denies pain and discomfort. Denies SOB/ dyspnea. Denies chest pain, palpitations, headaches, dizziness. Denies fevers, chills. Denies dysuria. Objective Vitals Vital Signs Date Time Temp Pulse Resp B/P (MAP) Pulse Ox O2 Delivery O2 Flow Rate FiO2 03/17/17 05:34 97.3 62 16 137/83 (101) 96 03/16/17 15:50 97.9 71 17 139/75 (96) 99 I/O 03/16/17 03/16/17 03/16/17 03/17/17 03/17/17 03/17/17 07:00 15:00 23:00 07:00 15:00 23:00 Intake Total 100 ml 1000 ml Balance 100 ml 1000 ml Intake IV Total 100 ml 1000 ml Result Diagram: 03/15/17 2315 03/17/17 0832 Imaging Last Impressions Abdomen/Pelvis CT 03/16/17 0000 Signed Impressions: Service Date/Time: February 22:17 - CONCLUSION: Normal examination. Angel Evans MD Chest X-Ray 03/15/172311 Signed Impressions: Service Date/Time: Wednesday, March 15, 2017 23:14 - CONCLUSION: 1. No acute cardiopulmonary disease. Jeffry Ashton MD Objective Remarks GENERAL: This is a well-nourished, well-developed patient, in no apparent distress. SKIN: Warm and dry. HEAD: Normocephalic. EYES: Pupils equal round and reactive. Extraocular motions intact. No scleral icterus. No injection or drainage. ENT: Nose without bleeding. Throat without erythema. Uvula midline. Airway patent. NECK: Trachea midline. CARDIOVASCULAR: Regular rate and rhythm without murmurs, gallops, or rubs. RESPIRATORY: Clear to auscultation. Breath sounds equal bilaterally. No wheezes , rales, or rhonchi. GASTROINTESTINAL: Abdomen soft, nondistended. Left lower quadrant mild tenderness to deep palpation. Right quadrant nontender. MUSCULOSKELETAL: Extremities without clubbing, cyanosis, or edema. NEUROLOGICAL: Awake and alert. Cranial nerves II through XII intact. Motor and sensory grossly within normal limits. Normal speech. A/P Problem List: (1) GERD (gastroesophageal reflux disease) ICD Code: K21.9 - Gastro-esophageal reflux disease without esophagitis (2) Tobacco abuse ICD Code: Z72.0 - Tobacco use (3) PTSD (post-traumatic stress disorder) ICD Code: F43.10 - PTSD (post-traumatic stress disorder) Status: Acute (4) Alcohol intoxication ICD Code: F10.929 - Alcohol use, unspecified with intoxication, unspecified Status: Acute Assessment and Plan Patient is a 36-year-old male with primary medical history of PTSD, asthma who came into the hospital under Young act secondary to trazodone overdose. He is now admitted to inpatient psychiatry unit for further evaluation. Consulted for abdominal pain, diarrhea. Overdose on trazodone - Labs reviewed chemistry within normal except for hypokalemia when patient came in. Has been replaced and now within normal - EKG 73, sinus rhythm with sinus arrhythmia nonspecific T-wave abnormality. QT interval 424 Suspect diverticulitis versus pancreatitis versus acute gastritis Abdominal pain - Abdominal pain left lower quadrant, mild leukocytosis, diarrhea - Pantoprazole 40 mg daily, Bentyl 4 times a day - CT of the abdomen showed normal examination. - UA negative - lipase, amylase within normal - Improved abdominal pain Hypokalemia - Potassium replacement - Recheck potassium Asthma, not in exacerbation - May use DuoNeb's when necessary Tobacco abuse - Counseled for cessation - Nicotine patch PTSD - Managed by psychiatry team DVT prop ambulatory Discussed with patient, nursing, Dr. Tran Problem Qualifiers (1) Alcohol intoxication: Qualified Codes: F10.920 - Alcohol use, unspecified with intoxication, uncomplicated Abdiel Basurto [facility] Mar 17, 2017 15:09
[2017-03-17 15:14] LABS: HEMOGLOBIN A1a 0.9 %; HEMOGLOBIN A1b 1.7 %; HEMOGLOBIN Ao 85.9 %; HEMOGLOBIN LA1C 2.1 %; HEMOGLOBIN P3 3.6 %
[2017-03-17] MEDS: SODIUM CHLOR 0.9% 1000 ML INJ 1,000 ML IV SCH ×2 (15:15→23:15)
[2017-03-17 17:30] VITALS: BP 155/91; PULSE 81; RESP 16; TEMP 98.1; O2SAT 98
[2017-03-17] MEDS: MIRTAZAPINE ODT 30 MG TAB PO SCH (21:00)
[2017-03-17] MEDS ORDERED: ZOLPIDEM TARTRATE 5 MG TAB PO ONE (22:30)
[2017-03-18 05:10] VITALS: BP 161/95; PULSE 76; RESP 18; TEMP 97.6; O2SAT 95
[2017-03-18] MEDS: SODIUM CHLOR 0.9% 1000 ML INJ 1,000 ML IV SCH ×3 (07:15→23:15)
[2017-03-18] MEDS: REMOVE OLD PATCH T-DERMAL SCH (09:00)
[2017-03-18] MEDS: DICYCLOMINE HCL 10 MG CAP PO SCH ×4 (09:00→19:59)
[2017-03-18] MEDS: PANTOPRAZOLE SOD 40 MG DELAYED RELEASE TAB PO SCH (09:00)
[2017-03-18] MEDS: clonazePAM 0.5 MG TAB PO SCH ×3 (09:01→17:48)
[2017-03-18] MEDS: NICOTINE 21 MG/24 HR PATCH T-DERMAL SCH (09:02)
[2017-03-18] MEDS ORDERED: POTASSIUM CHLORIDE 20 MEQ CONTROLLED RELEASE TAB PO ONE (10:00)
--- NOTE | 2017-03-18 14:57 | HHI.PYPN ---
Subjective Chief Complaint: patient suicidal ideation Remarks Pt seen and discussed with staff. He was admitted to psychiatry secondary to suicide attempt via overdose on trazodone and alcohol. He was allowed to sign for voluntary admission yesterday and this morning signed an ROR requesting release due to needing to help his grandparents. Insight into suicide attempt is limited. He complains of anxiety and feelings of claustrophobia. He remains depressed and dysphoric. Mental Status Examination Appearance: Appropriate (dressed in [facility]. Maintaining basic hygiene. ) Consciousness: Alert Orientation: x4 Motor Activity: Normal gait Speech: Unremarkable Language: Adequate Fund of Knowledge: Adequate Attention and Concentration: Adequate Memory: Unremarkable Mood: Anxious, Other (depressed) Affect: Anxious Thought Process & Associations: Intact, Logical, Goal directed Thought Content: Appropriate Hallucination Type: None Delusion Type: None Suicidal Ideation: Yes Suicidal Plan: No Suicidal Intention: No Homicidal Ideation: No Homicidal Plan: No Homicidal Intention: No Insight: Poor Judgment: Impulsive Results Vitals/IOs Vital Signs Date Time Temp Pulse Resp B/P (MAP) Pulse Ox O2 Delivery O2 Flow Rate FiO2 03/18/17 05:10 97.6 76 18 161/95 (117) 95 03/16/17 10:46 Room Air 03/16/17 02:43 2.00 Assessment & Plan Problem List: (1) Bipolar disorder current episode depressed ICD Codes: F31.30 - Bipolar disorder current episode depressed Status: Acute (2) Alcohol intoxication ICD Codes: F10.929 - Alcohol use, unspecified with intoxication, unspecified Status: Acute (3) PTSD (post-traumatic stress disorder) ICD Codes: F43.10 - PTSD (post-traumatic stress disorder) Status: Acute Assessment & Plan Pt rescinded ROR. Continue current tx plan,.Estimated LOS: days Justification for Cont. Inpt. impairments in safety Request HC Surrog/Guard Advoc?: No Problem Qualifiers (1) Alcohol intoxication: Qualified Codes: F10.920 - Alcohol use, unspecified with intoxication, uncomplicated Sarah Montes MD Mar 18, 2017 14:57
[2017-03-18] MEDS: ACETAMINOPHEN 325 MG TAB PO PRN (18:04)
[2017-03-18 18:18] VITALS: BP 143/91; PULSE 84; RESP 18; TEMP 97.6; O2SAT 98
[2017-03-18] MEDS: MIRTAZAPINE ODT 30 MG TAB PO SCH (19:59)
[2017-03-18] MEDS ORDERED: ZOLPIDEM TARTRATE 5 MG TAB PO ONE (21:00)
[2017-03-19] MEDS: ACETAMINOPHEN 325 MG TAB PO PRN ×2 (05:59→12:14)
[2017-03-19 06:27] VITALS: BP 162/101; PULSE 83; RESP 18; TEMP 97.5; O2SAT 96
[2017-03-19] MEDS: SODIUM CHLOR 0.9% 1000 ML INJ 1,000 ML IV SCH ×3 (07:15→23:15)
[2017-03-19] MEDS: NICOTINE 21 MG/24 HR PATCH T-DERMAL SCH (08:24)
[2017-03-19] MEDS: PANTOPRAZOLE SOD 40 MG DELAYED RELEASE TAB PO SCH (08:25)
[2017-03-19] MEDS: clonazePAM 0.5 MG TAB PO SCH ×3 (08:25→17:54)
[2017-03-19] MEDS: DICYCLOMINE HCL 10 MG CAP PO SCH (08:29)
[2017-03-19] MEDS: REMOVE OLD PATCH T-DERMAL SCH (09:00)
--- NOTE | 2017-03-19 10:15 | HHI.PR ---
Subjective Remarks Follow-up visit abdominal pain, nausea, vomiting. Patient seen and examined today. Reports he is feeling a lot better. Able to tolerate by mouth diet slowly. States he has no diarrhea. Abdominal pain has subsided. Denies pain and discomfort. Denies SOB/ dyspnea. Denies chest pain, palpitations, headaches, dizziness. Denies fevers, chills. Denies dysuria. 03-19 no new complaints. Seen in the psychiatric recreation area Discussed with patient and RN Objective Vitals Vital Signs Date Time Temp Pulse Resp B/P (MAP) Pulse Ox O2 Delivery O2 Flow Rate FiO2 03/19/17 06:27 97.5 83 18 162/101 (121) 96 03/18/17 18:18 97.6 84 18 143/91 (108) 98 I/O 03/18/17 03/18/17 03/18/17 03/19/17 03/19/17 03/19/17 07:00 15:00 23:00 07:00 15:00 23:00 Intake Total 240 ml Balance 240 ml Intake Oral 240 ml Result Diagram: 03/15/17231403/17/17 0832 Other Results Laboratory Tests Test 03/16/17 13:21 03/17/17 08:32 Amylase Level 41 U/L Lipase 115 U/L Blood Urea Nitrogen 9 MG/DL Creatinine 1.15 MG/DL Random Glucose 96 MG/DL Calcium Level 8.9 MG/DL Sodium Level 139 MEQ/L Potassium Level 3.0 MEQ/L Chloride Level 103 MEQ/L Carbon Dioxide Level 27.6 MEQ/L Anion Gap 8 MEQ/L Estimat Glomerular Filtration Rate 72 ML/MIN Hemoglobin A1c 5.4 % Triglycerides Level 425 MG/DL Cholesterol Level 178 MG/DL LDL Cholesterol MG/DL HDL Cholesterol 27.3 MG/DL Cholesterol/HDL Ratio 6.52 RATIO Imaging Last Impressions Abdomen/Pelvis CT 03/16/17 0000 Signed Impressions: Service Date/Time: February 22:17 - CONCLUSION: Normal examination. Angel Evans MD Chest X-Ray 03/15/172 Signed Impressions: Service Date/Time: Wednesday, March 15, 2017 23:14 - CONCLUSION: 1. No acute cardiopulmonary disease. Jeffry Ashton MD Objective Remarks GENERAL: Awake alert and talkative extraocular muscles intact SKIN: Warm and dry. HEAD: Atraumatic. Normocephalic. EYES: Pupils equal and round. No scleral icterus. No injection or drainage. ENT: No nasal bleeding or discharge. Mucous membranes pink and moist. Tongue is midline supple NECK: Trachea midline. No JVD. CARDIOVASCULAR: Regular rate and rhythm. S1 and S2 no S3-S4 no heave or thrill or rub or gallop RESPIRATORY: No accessory muscle use. Clear to auscultation. Breath sounds equal bilaterally. GASTROINTESTINAL: Abdomen soft, non-tender, nondistended. Hepatic and splenic margins not palpable. MUSCULOSKELETAL: Extremities without clubbing, cyanosis, or edema. No obvious deformities. NEUROLOGICAL: Awake and alert. No obvious cranial nerve deficits. Motor grossly within normal limits. Five out of 5 muscle strength in the arms and legs. Normal speech. PSYCHIATRIC: INAppropriate mood and affect; insight and judgment ABnormal. Medications and IVs Current Medications Sodium Chloride (NS Flush) 2 ml UNSCH PRN IVF FLUSH AFTER USING IV ACCESS; Start 03/15/17 at 23:15 Sodium Chloride 1,000 ml @ 125 mls/hr Q8H IV Last administered on 03/15/17 23:19; Start 03/15/17 at 23:15 Potassium Chloride (KCl) 40 meq ONCE ONCE PO Last administered on 03/16/17 01:12; Start 03/16/17 at 01:00; Stop 03/16/17 at 01:01; Status DC Potassium Chloride 100 ml @ 100 mls/hr BOLUS ONCE IV Last administered on 01:32; Start 03/16/17 at 01:00; Stop 03/16/17 at 01:59; Status DC Dicyclomine HCl (Bentyl) 20 mg ONCE ONCE PO Last administered on 03/16/17 13 :00; Start 03/16/17 at 13:00; Stop 03/16/17 at 13:01; Status DC Acetaminophen (Tylenol) 650 mg ONCE ONCE PO Last administered on 03/16/17 13 :00; Start 03/16/17 at 13:00; Stop 03/16/17 at 13:01; Status DC Ondansetron HCl (Zofran Odt) 4 mg ONCE ONCE PO Last administered on 13:39; Start 03/16/17 at 13:45; Stop 03/16/17 at 13:46; Status DC Acetaminophen (Tylenol) 650 mg Q4H PRN PO Pain 1-5 or Temp >101F Last administered on 03/17/17 09:29; Start 03/16/17 at 14:00; Stop 03/17/17 at 14 :45; Status DC Magnesium Hydroxide (Milk Of Magnesia Liq) 30 ml DAILY PRN PO CONSTIPATION; Start 03/16/17 at 14:00 Al Hydrox/Mg Hydrox/Simethicone (Mag-Al Plus Susp Liq) 30 ml Q6H PRN PO DYSPEPSIA; Start 03/16/17 at 14:00 Al Hydrox/Mg Hydrox/Simethicone (Mag-Al Plus Susp Liq) 30 ml ONCE ONCE PO ; Start 03/16/17 at 17:00; Stop 03/16/17 at 17:50; Status DC Pantoprazole Sodium (Protonix) 40 mg DAILY PO Last administered on 03/19/17 08:25; Start 03/16/17 at 17:00 Clonazepam (KlonoPIN) 0.5 mg TID PO Last administered on 03/19/17 08:25; Start 03/16/17 at 18:00 Mirtazapine (Remeron Soltab Odt) 30 mg HS PO Last administered on 03/18/17 19 :59; Start 03/16/17 at 21:00 Nicotine (Habitrol 21 Mg Patch.24 Hr) 1 patch DAILY T-DERMAL Last administered on 03/17/17 08:44; Start 03/16/17 at 17:45; Stop 03/17/17 at 14:46; Status DC Miscellaneous Information 1 DAILY T-DERMAL Last administered on 03/18/17 09: 00; Start 03/17/17 at 09:00 Diatrizoate Meglum/ Diatrizoate Sod ( Gastroview Liq) 18 ml ONCE ONCE PO ; Start 03/16/17 at 20:00; Stop 03/16/17 at 20:01; Status DC Ondansetron HCl (Zofran Odt) 4 mg ONCE ONCE PO Last administered on 20:14; Start 03/16/17 at 20:30; Stop 03/16/17 at 20:31; Status DC Chlorpromazine HCl (Thorazine Inj) 50 mg NOW ONCE IM Last administered on 21:11; Start 03/16/17 at 21:15; Stop 03/16/17 at 21:16; Status DC Dicyclomine HCl (Bentyl) 20 mg QID PO Last administered on 03/19/17 08:29; Start 03/17/17 at 09:00; Stop 03/19/17 at 08:59; Status DC Ondansetron HCl (Zofran Odt) 4 mg Q6H PRN PO NAUSEA OR VOMITING Last administered on 03/17/17 12:05; Start 03/17/17 at 08:00 Potassium Chloride (KCl) 40 meq ONCE ONCE PO Last administered on 03/17/17 12:04; Start 03/17/17 at 11:30; Stop 03/17/17 at 11:31; Status DC Acetaminophen (Tylenol) 650 mg Q4H PRN PO Pain 1-5 or Temp >101F Last administered on 03/19/17 05:59; Start 03/17/17 at 14:30 Nicotine (Habitrol 21 Mg Patch.24 Hr) 1 patch DAILY T-DERMAL Last administered on 03/19/17 08:24; Start 03/18/17 at 09:00 Carbamazepine (TEGretol CHEW) 100 mg BID PO Last administered on 03/19/17 08: 25; Start 03/17/17 at 14:45 Potassium Chloride (KCl) 20 meq ONCE ONCE PO Last administered on 03/18/17 09:01; Start 03/18/17 at 10:00; Stop 03/18/17 at 10:01; Status DC Zolpidem Tartrate (Ambien) 5 mg ONCE ONCE PO Last administered on 03/17/17 22:30; Start 03/17/17 at 22:30; Stop 03/17/17 at 22:32; Status DC Zolpidem Tartrate (Ambien) 5 mg ONCE ONCE PO Last administered on 03/18/17 20:44; Start 03/18/17 at 21:00; Stop 03/18/17 at 21:01; Status DC A/P Problem List: (1) GERD (gastroesophageal reflux disease) ICD Code: K21.9 - Gastro-esophageal reflux disease without esophagitis (2) Tobacco abuse ICD Code: Z72.0 - Tobacco use (3) PTSD (post-traumatic stress disorder) ICD Code: F43.10 - PTSD (post-traumatic stress disorder) Status: Acute (4) Alcohol intoxication ICD Code: F10.929 - Alcohol use, unspecified with intoxication, unspecified Status: Acute Assessment and Plan Patient is a 36-year-old male with primary medical history of PTSD, asthma who came into the hospital under Young act secondary to trazodone overdose. He is now admitted to inpatient psychiatry unit for further evaluation. Consulted for abdominal pain, diarrhea. Overdose on trazodone - Labs reviewed chemistry within normal except for hypokalemia when patient came in. Has been replaced and now within normal - EKG 73, sinus rhythm with sinus arrhythmia nonspecific T-wave abnormality. QT interval 424 Suspect diverticulitis versus pancreatitis versus acute gastritis Abdominal pain - Abdominal pain left lower quadrant, mild leukocytosis, diarrhea - Pantoprazole 40 mg daily, Bentyl 4 times a day - CT of the abdomen showed normal examination. - UA negative - lipase, amylase within normal - Improved abdominal pain Hypokalemia - Potassium replacement - Recheck potassium Asthma, not in exacerbation - May use DuoNeb's when necessary Tobacco abuse - Counseled for cessation - Nicotine patch PTSD - Managed by psychiatry team DVT prop ambulatory A.m. labs check on hypokalemia Discharge Planning A.m. labs Problem Qualifiers (1) Alcohol intoxication: Qualified Codes: F10.920 - Alcohol use, unspecified with intoxication, uncomplicated Jerardo Moreno DO Mar 19, 2017 10:15
--- NOTE | 2017-03-19 16:04 | HHI.PYPN ---
Subjective Chief Complaint: patient suicidal ideation Remarks Pt seen and discussed with staff. He has been anxious with poor coping skills on unit. He c/o of depressed mood. No medication side effects. NO SI/HI Mental Status Examination Appearance: Appropriate (dressed in [facility]. Maintaining basic hygiene. ) Consciousness: Alert Orientation: x4 Motor Activity: Normal gait Speech: Unremarkable Language: Adequate Fund of Knowledge: Adequate Attention and Concentration: Adequate Memory: Unremarkable Mood: Anxious, Other (depressed) Affect: Anxious Thought Process & Associations: Intact, Logical, Goal directed Thought Content: Appropriate Hallucination Type: None Delusion Type: None Suicidal Ideation: Yes Suicidal Plan: No Suicidal Intention: No Homicidal Ideation: No Homicidal Plan: No Homicidal Intention: No Insight: Poor Judgment: Impulsive Results Labs Test 03/19/17 10:53 Potassium Level 3.2 MEQ/L Vitals/IOs Vital Signs Date Time Temp Pulse Resp B/P (MAP) Pulse Ox O2 Delivery O2 Flow Rate FiO2 03/19/17 06:27 97.5 83 18 162/101 (121) 96 03/16/17 10:46 Room Air 03/16/17 02:43 2.00 Assessment & Plan Problem List: (1) Bipolar disorder current episode depressed ICD Codes: F31.30 - Bipolar disorder current episode depressed Status: Acute (2) Alcohol intoxication ICD Codes: F10.929 - Alcohol use, unspecified with intoxication, unspecified Status: Acute (3) PTSD (post-traumatic stress disorder) ICD Codes: F43.10 - PTSD (post-traumatic stress disorder) Status: Acute Assessment & Plan Continue current tx plan. Estimated LOS: days Justification for Cont. Inpt. impairments in safety Request HC Surrog/Guard Advoc?: No Problem Qualifiers (1) Alcohol intoxication: Qualified Codes: F10.920 - Alcohol use, unspecified with intoxication, uncomplicated Sarah Montes MD Mar 19, 2017 16:04
[2017-03-19] MEDS: IBUPROFEN 800 MG TAB PO PRN (16:57)
[2017-03-19 17:04] VITALS: BP 165/101; PULSE 74; RESP 18; TEMP 97.8; O2SAT 100
[2017-03-19] MEDS: MIRTAZAPINE ODT 30 MG TAB PO SCH (20:05)
[2017-03-20 05:43] VITALS: BP 129/85; PULSE 62; RESP 16; TEMP 98.1; O2SAT 96
[2017-03-20] MEDS: IBUPROFEN 800 MG TAB PO PRN (05:46)
[2017-03-20] MEDS: SODIUM CHLOR 0.9% 1000 ML INJ 1,000 ML IV SCH ×2 (07:15→14:48)
[2017-03-20 07:35] LABS: AUTOMATED NEUTROPHIL # 4.5 TH/MM3 (1.8-7.7); BASOPHIL % 0.3 % (0.0-2.0); EOSINOPHIL # 0.2 TH/MM3 (0-0.4); EOSINOPHIL % 2.6 % (0.0-4.0); HEMATOCRIT 44.8 % (39.0-51.0); HEMO FLAGS DIFF FINAL; LYMPH % 27.8 % (9.0-44.0); LYMPHOCYTE # 2.1 TH/MM3 (1.0-4.8); MEAN CELL VOLUME 82.9 FL (80.0-100.0); MEAN CORPUSCULAR HEMOGLOBIN 28.5 PG (27.0-34.0); MEAN CORPUSCULAR HGB CONC 34.4 % (32.0-36.0); NEUT % 60.3 % (16.0-70.0); PLATELET COUNT 313 TH/MM3 (150-450); WHITE BLOOD COUNT 7.5 TH/MM3 (4.0-11.0)
[2017-03-20 08:13] LABS: ANION GAP 11 MEQ/L (5-15); AST (GOT) 41 U/L (15-37); BLOOD UREA NITROGEN 11 MG/DL (7-18); CHLORIDE 104 MEQ/L (98-107); GLOMERULAR FILTRATION RATE 84 ML/MIN (>89); MAGNESIUM 2.4 MG/DL (1.5-2.5); POTASSIUM 3.3 MEQ/L (3.5-5.1); SODIUM (NA) 139 MEQ/L (136-145)
[2017-03-20] MEDS: clonazePAM 0.5 MG TAB PO SCH ×2 (08:16→12:29)
[2017-03-20 08:17] LABS: ALKALINE PHOSPHATASE 88 U/L (45-117); ALT (GPT) 92 U/L (12-78); TOTAL BILIRUBIN ADULT 0.5 MG/DL (0.2-1.0)
[2017-03-20] MEDS: NICOTINE 21 MG/24 HR PATCH T-DERMAL SCH (08:17)
[2017-03-20] MEDS: PANTOPRAZOLE SOD 40 MG DELAYED RELEASE TAB PO SCH (08:17)
[2017-03-20] MEDS: REMOVE OLD PATCH T-DERMAL SCH (08:18)
[2017-03-20] MEDS: ACETAMINOPHEN 325 MG TAB PO PRN (08:29)
[2017-03-20] MEDS ORDERED: CLON.5 PO (13:26)
[2017-03-20] MEDS ORDERED: MIRT1TAB44 PO (13:26)
[2017-03-20] MEDS ORDERED: CARB100C PO (13:26)
[2017-03-20] MEDS ORDERED: PANT40TA3 PO (13:26)
--- NOTE | 2017-03-20 13:32 | HHI.DS ---
Psychiatry Discharge Summary Inpatient Psychiatric care?: Yes Advance Directive: No Reason Not Provided: refused Mental Health AdvanceDirective: No Health Care Proxy: No Admission Admission Date Mar 16, 2017 at 13:54 Admission Diagnosis: (1) PTSD (post-traumatic stress disorder) ICD Code: F43.10 - PTSD (post-traumatic stress disorder) (2) Bipolar disorder current episode depressed ICD Code: F31.30 - Bipolar disorder current episode depressed (3) Alcohol intoxication ICD Code: F10.929 - Alcohol use, unspecified with intoxication, unspecified Brief History Patient is a 36-year-old white male initially come she under Young act signed a [facility]'s office dated 03/15/17 at 2218 hrs. that document reviewed essentially states Livia now to call 911 requesting help stating he was [employer] was [employer] who suffers from PTSD. Then he was having suicidal thoughts. Upon arrival at seen Liu stated he took his entire prescribed month supply of trazodone pills. Noe was cooperative with procedural nurse appointment and began to become very lethargic as [facility] [employer] arrived on scene and began treating him. Patient seen screened in the ED urine toxicology negative blood alcohol level of 184. Of inches patient was seen here in 2012 at that time blood alcohol level of 159 I was involved with his care at that time. He was released of medication to follow-up with [facility]. It appears since that time patient has moved back to the [place] area for well- developed care for his parents who have had various medical and mental health issues, return back here in December of this year to help care for his elderly grandparents. He said his somewhat depressed right now also because he is going through divorce and because he found a girlfriend since moving back to [place] for a brief affair and they have since broken up. Patient does acknowledge poor sleep with PTSD and nightmares. His [facility] psychiatric hospitalizations as mentioned above. [facility] and also back in [place]. He has been on various medications in the past with limited success. He states he is attempting to get [facility] has not been successful yet. As mentioned above he has strong family history of mental health issues. Himself denies any physical or sexual abuse. At the present time patient doesn't meet criteria for inpatient psychiatric hospitalization. Though I feel the patient has capacity to sign voluntary to sign for his medications. Thus I'll lift the Young act allow him to sign voluntary. Continue him on his medications per the EMR and and Tegretol 100 mg twice a day to the regimen. Hopeless to be fairly short stay and we can get him reconnected with the AL clinic [facility] Tobacco Use In Past 30 Days: 5 or More Cigarettes/Day Alcohol Use: Monthly or Less Hospital Course Patient's hospital course was uneventful, patient show compliance with medication from admission, his mood did improve, issues no significant signs of withdrawal, he now denies suicidality homicidality voices or visions. States he is sleeping better and showing marked improvement in his anxiety with a small dose of Klonopin. He now wishes discharged return home with his grandparents. At this time I feel patient reaches maximum benefit of this hospitalization thus will be discharged. We'll continue his medications. Though he will be given a one-week supply of Klonopin with no refills to follow through with the AL clinic [facility]. Her mental health follow-up and also substance abuse assessment and counseling Results Blood Pressure 129 / 85 Vital Signs Date Time Temp Pulse Resp B/P (MAP) Pulse Ox O2 Delivery O2 Flow Rate FiO2 03/20/17 05:43 98.1 62 16 129/85 (100) 96 03/16/17 10:46 Room Air Laboratory Tests Test 03/19/17 10:53 03/20/17 07:12 Potassium Level 3.2 MEQ/L (3.5-5.1) 3.3 MEQ/L (3.5-5.1) Mean Platelet Volume 6.8 FL (7.0-11.0) Monocytes (%) (Auto) 9.0 % (0.0-8.0) Aspartate Amino Transf (AST/SGOT) 41 U/L (15-37) Alanine Aminotransferase (ALT/SGPT) 92 U/L (12-78) Estimat Glomerular Filtration Rate 84 ML/MIN (>89) Laboratory Results Test 03/17/17 08:32 Cholesterol Level 178 MG/DL (120-200) HDL Cholesterol 27.3 MG/DL (40.0-60.0) Hemoglobin A1c 5.4 % (4.3-6.0) LDL Cholesterol MG/DL (0-99) Triglycerides Level 425 MG/DL (42-150) Summary of Procedures None done Imaging Last Impressions Abdomen/Pelvis CT 03/16/17 0000 Signed Impressions: Service Date/Time: February 22:17 - CONCLUSION: Normal examination. Angel Evans MD Chest X-Ray 03/15/17 2312 Signed Impressions: Service Date/Time: Wednesday, March 15, 2017 23:14 - CONCLUSION: 1. No acute cardiopulmonary disease. Jeffry Ashton MD Pending results at discharge: No Medications # of Antipsychotic meds at D/C: 0 Approp Antipsych med options 1 - Minimum of three failed multiple trials of monotherapy. 2 - Documented plan to taper to monotherapy due to previous use of multiple meds OR cross-taper in progress at D/C. 3 - Documentation of augmentation of Clozapine. 4 - Justification other than those listed in allowable values 1-3, document here : Discharge Discharge Date: Mar 20, 2017 Discharge Diagnosis: (1) Bipolar disorder current episode depressed Diagnosis: Principal ICD Code: F31.30 - Bipolar disorder current episode depressed Status: Acute (2) Alcohol intoxication Diagnosis: Secondary ICD Code: F10.929 - Alcohol use, unspecified with intoxication, unspecified Status: Acute (3) PTSD (post-traumatic stress disorder) Diagnosis: Secondary ICD Code: F43.10 - PTSD (post-traumatic stress disorder) Status: Acute Pt Condition on Discharge: Stable Discharge Disposition: Discharge Home Discharge Instructions Diet Instructions: As Tolerated, No Restrictions Activities you can perform: Regular-No Restrictions Scheduled Appointment: follow-up AL outpatient clinic Discharge Time > 30 minutes Mental Status Examination Appearance: Appropriate (dressed in [facility]. Maintaining basic hygiene. ) Consciousness: Alert Orientation: x4 Motor Activity: Normal gait Speech: Unremarkable Language: Adequate Fund of Knowledge: Adequate Attention and Concentration: Adequate Memory: Unremarkable Mood: Anxious, Other (depressed) Affect: Anxious Thought Process & Associations: Intact, Logical, Goal directed Thought Content: Appropriate Hallucination Type: None Delusion Type: None Suicidal Ideation: Yes Suicidal Plan: No Suicidal Intention: No Homicidal Ideation: No Homicidal Plan: No Homicidal Intention: No Insight: Poor Judgment: Impulsive Discharge/Advance Care Plan Health Problems: (1) Bipolar disorder current episode depressed (2) Alcohol intoxication (3) PTSD (post-traumatic stress disorder) Goals to promote your health * To prevent worsening of your condition and complications * To maintain your health at the optimal level Directions to meet your goals Take your medications as prescribed Follow your dietary instruction Follow activity as directed Keep your appointments as scheduled Take your immunizations and boosters as scheduled If your symptoms worsen call your PCP, if no PCP go to Urgent Care Center or Emergency Room For 19/12 questions related to your inpatient stay or results of tests pending at discharge, please contact Dr. Darwin Jama at Smoking is Dangerous to Your Health. Avoid second hand smoking Problem Qualifiers (1) Alcohol intoxication: Qualified Codes: F10.920 - Alcohol use, unspecified with intoxication, uncomplicated Darwin Jama MD Mar 20, 2017 13:32
--- NOTE | 2017-03-20 16:16 | HHI.PR ---
Subjective Remarks Follow-up visit abdominal pain, nausea, vomiting. Patient seen and examined today. Reports he is feeling a lot better. Able to tolerate by mouth diet slowly. States he has no diarrhea. Abdominal pain has subsided. Denies pain and discomfort. Denies SOB/ dyspnea. Denies chest pain, palpitations, headaches, dizziness. Denies fevers, chills. Denies dysuria. 03-19 no new complaints. Seen in the psychiatric recreation area Discussed with patient and RN 10-23 CLEARED BY PSYCHIATRY FOR DC Objective Vitals Vital Signs Date Time Temp Pulse Resp B/P (MAP) Pulse Ox O2 Delivery O2 Flow Rate FiO2 03/20/17 05:43 98.1 62 16 129/85 (100) 96 03/19/17 17:04 97.8 74 18 165/101 (122) 100 Result Diagram: 03/20/17 0712 03/20/17 0712 Other Results Laboratory Tests Test 03/19/17 10:53 03/20/17 07:12 Potassium Level 3.2 MEQ/L 3.3 MEQ/L White Blood Count 7.5 TH/MM3 Red Blood Count 5.40 MIL/MM3 Hemoglobin 15.4 GM/DL Hematocrit 44.8 % Mean Corpuscular Volume 82.9 FL Mean Corpuscular Hemoglobin 28.5 PG Mean Corpuscular Hemoglobin Concent 34.4 % Red Cell Distribution Width 13.0 % Platelet Count 313 TH/MM3 Mean Platelet Volume 6.8 FL Neutrophils (%) (Auto) 60.3 % Lymphocytes (%) (Auto) 27.8 % Monocytes (%) (Auto) 9.0 % Eosinophils (%) (Auto) 2.6 % Basophils (%) (Auto) 0.3 % Neutrophils # (Auto) 4.5 TH/MM3 Lymphocytes # (Auto) 2.1 TH/MM3 Monocytes # (Auto) 0.7 TH/MM3 Eosinophils # (Auto) 0.2 TH/MM3 Basophils # (Auto) 0.0 TH/MM3 CBC Comment DIFF FINAL Differential Comment Blood Urea Nitrogen 11 MG/DL Creatinine 1.00 MG/DL Random Glucose 89 MG/DL Total Protein 7.8 GM/DL Albumin 4.0 GM/DL Calcium Level 9.0 MG/DL Phosphorus Level 2.8 MG/DL Magnesium Level 2.4 MG/DL Alkaline Phosphatase 88 U/L Aspartate Amino Transf (AST/SGOT) 41 U/L Alanine Aminotransferase (ALT/SGPT) 92 U/L Total Bilirubin 0.5 MG/DL Sodium Level 139 MEQ/L Chloride Level 104 MEQ/L Carbon Dioxide Level 24.0 MEQ/L Anion Gap 11 MEQ/L Estimat Glomerular Filtration Rate 84 ML/MIN Carbamazepine (Tegretol) Level 4.0 MCG/ML Imaging Last Impressions Abdomen/Pelvis CT 03/16/17 0000 Signed Impressions: Service Date/Time: February 22:17 - CONCLUSION: Normal examination. Angel Evans MD Chest X-Ray 03/15/17 2312 Signed Impressions: Service Date/Time: Wednesday, March 15, 2017 23:14 - CONCLUSION: 1. No acute cardiopulmonary disease. Jeffry Ashton MD Objective Remarks GENERAL: Awake alert and talkative extraocular muscles intact SKIN: Warm and dry. HEAD: Atraumatic. Normocephalic. EYES: Pupils equal and round. No scleral icterus. No injection or drainage. ENT: No nasal bleeding or discharge. Mucous membranes pink and moist. Tongue is midline supple NECK: Trachea midline. No JVD. CARDIOVASCULAR: Regular rate and rhythm. S1 and S2 no S3-S4 no heave or thrill or rub or gallop RESPIRATORY: No accessory muscle use. Clear to auscultation. Breath sounds equal bilaterally. GASTROINTESTINAL: Abdomen soft, non-tender, nondistended. Hepatic and splenic margins not palpable. MUSCULOSKELETAL: Extremities without clubbing, cyanosis, or edema. No obvious deformities. NEUROLOGICAL: Awake and alert. No obvious cranial nerve deficits. Motor grossly within normal limits. Five out of 5 muscle strength in the arms and legs. Normal speech. PSYCHIATRIC: INAppropriate mood and affect; insight and judgment ABnormal. Medications and IVs Current Medications Sodium Chloride (NS Flush) 2 ml UNSCH PRN IVF FLUSH AFTER USING IV ACCESS; Start 03/15/17 at 23:15; Stop 03/20/17 at 15:54; Status DC Sodium Chloride 1,000 ml @ 125 mls/hr Q8H IV Last administered on 03/15/17 23:19; Start 03/15/17 at 23:15; Stop 03/20/17 at 15:54; Status DC Potassium Chloride (KCl) 40 meq ONCE ONCE PO Last administered on 03/16/17 01:12; Start 03/16/17 at 01:00; Stop 03/16/17 at 01:01; Status DC Potassium Chloride 100 ml @ 100 mls/hr BOLUS ONCE IV Last administered on 01:32; Start 03/16/17 at 01:00; Stop 03/16/17 at 01:59; Status DC Dicyclomine HCl (Bentyl) 20 mg ONCE ONCE PO Last administered on 03/16/17 13 :00; Start 03/16/17 at 13:00; Stop 03/16/17 at 13:01; Status DC Acetaminophen (Tylenol) 650 mg ONCE ONCE PO Last administered on 03/16/17 13 :00; Start 03/16/17 at 13:00; Stop 03/16/17 at 13:01; Status DC Ondansetron HCl (Zofran Odt) 4 mg ONCE ONCE PO Last administered on 13:39; Start 03/16/17 at 13:45; Stop 03/16/17 at 13:46; Status DC Acetaminophen (Tylenol) 650 mg Q4H PRN PO Pain 1-5 or Temp >101F Last administered on 03/17/17 09:29; Start 03/16/17 at 14:00; Stop 03/17/17 at 14 :45; Status DC Magnesium Hydroxide (Milk Of Magnesia Liq) 30 ml DAILY PRN PO CONSTIPATION; Start 03/16/17 at 14:00; Stop 03/20/17 at 15:54; Status DC Al Hydrox/Mg Hydrox/Simethicone (Mag-Al Plus Susp Liq) 30 ml Q6H PRN PO DYSPEPSIA; Start 03/16/17 at 14:00; Stop 03/20/17 at 15:54; Status DC Al Hydrox/Mg Hydrox/Simethicone (Mag-Al Plus Susp Liq) 30 ml ONCE ONCE PO ; Start 03/16/17 at 17:00; Stop 03/16/17 at 17:50; Status DC Pantoprazole Sodium (Protonix) 40 mg DAILY PO Last administered on 03/20/17 08:17; Start 03/16/17 at 17:00; Stop 03/20/17 at 15:54; Status DC Clonazepam (KlonoPIN) 0.5 mg TID PO Last administered on 03/20/17 12:29; Start 03/16/17 at 18:00; Stop 03/20/17 at 15:54; Status DC Mirtazapine (Remeron Soltab Odt) 30 mg HS PO Last administered on 03/19/17 20 :05; Start 03/16/17 at 21:00; Stop 03/20/17 at 15:54; Status DC Nicotine (Habitrol 21 Mg Patch.24 Hr) 1 patch DAILY T-DERMAL Last administered on 03/17/17 08:44; Start 03/16/17 at 17:45; Stop 03/17/17 at 14:46; Status DC Miscellaneous Information 1 DAILY T-DERMAL Last administered on 03/19/17 09: 00; Start 03/17/17 at 09:00; Stop 03/20/17 at 15:54; Status DC Diatrizoate Meglum/ Diatrizoate Sod ( Gastroview Liq) 18 ml ONCE ONCE PO ; Start 03/16/17 at 20:00; Stop 03/16/17 at 20:01; Status DC Ondansetron HCl (Zofran Odt) 4 mg ONCE ONCE PO Last administered on 20:14; Start 03/16/17 at 20:30; Stop 03/16/17 at 20:31; Status DC Chlorpromazine HCl (Thorazine Inj) 50 mg NOW ONCE IM Last administered on 21:11; Start 03/16/17 at 21:15; Stop 03/16/17 at 21:16; Status DC Dicyclomine HCl (Bentyl) 20 mg QID PO Last administered on 03/19/17 08:29; Start 03/17/17 at 09:00; Stop 03/19/17 at 08:59; Status DC Ondansetron HCl (Zofran Odt) 4 mg Q6H PRN PO NAUSEA OR VOMITING Last administered on 03/17/17 12:05; Start 03/17/17 at 08:00; Stop 03/20/17 at 15 :54; Status DC Potassium Chloride (KCl) 40 meq ONCE ONCE PO Last administered on 03/17/17 12:04; Start 03/17/17 at 11:30; Stop 03/17/17 at 11:31; Status DC Acetaminophen (Tylenol) 650 mg Q4H PRN PO Pain 1-5 or Temp >101F Last administered on 03/20/17 08:29; Start 03/17/17 at 14:30; Stop 03/20/17 at 15 :54; Status DC Nicotine (Habitrol 21 Mg Patch.24 Hr) 1 patch DAILY T-DERMAL Last administered on 03/20/17 08:17; Start 03/18/17 at 09:00; Stop 03/20/17 at 15:54; Status DC Carbamazepine (TEGretol CHEW) 100 mg BID PO Last administered on 03/20/17 08: 16; Start 03/17/17 at 14:45; Stop 03/20/17 at 15:54; Status DC Potassium Chloride (KCl) 20 meq ONCE ONCE PO Last administered on 03/18/17 09:01; Start 03/18/17 at 10:00; Stop 03/18/17 at 10:01; Status DC Zolpidem Tartrate (Ambien) 5 mg ONCE ONCE PO Last administered on 03/17/17 22:30; Start 03/17/17 at 22:30; Stop 03/17/17 at 22:32; Status DC Zolpidem Tartrate (Ambien) 5 mg ONCE ONCE PO Last administered on 03/18/17 20:44; Start 03/18/17 at 21:00; Stop 03/18/17 at 21:01; Status DC Ibuprofen (Motrin) 800 mg Q8H PRN PO pain 1-10 Last administered on 03/20/17 05:46; Start 03/19/17 at 16:45; Stop 03/20/17 at 15:54; Status DC Iohexol (Omnipaque 350 Inj) 100 ml STK-MED ONCE IVCONTRAST Last administered on 03/16/17 22:17; Start 03/16/17 at 22:17; Stop 03/20/17 at 11:08; Status DC A/P Problem List: (1) GERD (gastroesophageal reflux disease) ICD Code: K21.9 - Gastro-esophageal reflux disease without esophagitis (2) Tobacco abuse ICD Code: Z72.0 - Tobacco use (3) PTSD (post-traumatic stress disorder) ICD Code: F43.10 - PTSD (post-traumatic stress disorder) Status: Acute (4) Alcohol intoxication ICD Code: F10.929 - Alcohol use, unspecified with intoxication, unspecified Status: Acute Assessment and Plan Patient is a 36-year-old male with primary medical history of PTSD, asthma who came into the hospital under Young act secondary to trazodone overdose. He is now admitted to inpatient psychiatry unit for further evaluation. Consulted for abdominal pain, diarrhea. Overdose on trazodone - Labs reviewed chemistry within normal except for hypokalemia when patient came in. Has been replaced and now within normal - EKG 73, sinus rhythm with sinus arrhythmia nonspecific T-wave abnormality. QT interval 424 Suspect diverticulitis versus pancreatitis versus acute gastritis Abdominal pain - Abdominal pain left lower quadrant, mild leukocytosis, diarrhea - Pantoprazole 40 mg daily, Bentyl 4 times a day - CT of the abdomen showed normal examination. - UA negative - lipase, amylase within normal - Improved abdominal pain Hypokalemia - Potassium replacement - Recheck potassium Asthma, not in exacerbation - May use DuoNeb's when necessary Tobacco abuse - Counseled for cessation - Nicotine patch PTSD - Managed by psychiatry team DVT prop ambulatory PATIENT CLEARED BY PSYCHIATRY Discharge Planning CLEARED FOR [place] Problem Qualifiers (1) Alcohol intoxication: Qualified Codes: F10.920 - Alcohol use, unspecified with intoxication, uncomplicated Jerardo Moreno DO Mar 20, 2017 16:16
== END 2017-03-20 15:50 | disposition home or self-care (01) | DRG 885 ==
LOC: NEPC 22:58 → NEDA 03-16 13:54 → H260 03-16 15:53
PROVIDERS: ADMIT Psychiatry & Neurology Psychiatry; ATTEND Psychiatry & Neurology Psychiatry
DX: F31.30 Bipolar disorder, current episode depressed, mild or moderate severity, unspecified (principal); I10 Essential (primary) hypertension; T43.212A Poisoning by selective serotonin and norepinephrine reuptake inhibitors, intentional self-harm, initial encounter; F43.10 Post-traumatic stress disorder, unspecified; F10.129 Alcohol abuse with intoxication, unspecified; G89.29 Other chronic pain; M54.9 Dorsalgia, unspecified; J45.909 Unspecified asthma, uncomplicated; G47.00 Insomnia, unspecified; R19.7 Diarrhea, unspecified; R10.32 Left lower quadrant pain; K21.9 Gastro-esophageal reflux disease without esophagitis; E87.6 Hypokalemia; F17.210 Nicotine dependence, cigarettes, uncomplicated; F40.240 Claustrophobia; Y90.6 Blood alcohol level of 120-199 mg/100 ml; Z81.8 Family history of other mental and behavioral disorders; Z91.5 Personal history of self-harm; Z98.1 Arthrodesis status
CPT/HCPCS: 71010; 74177; 80048; 80053; 80061; 80156; 80307; 81001; 82150; 83036; 83690; 83735; 84100; 84132; 85025; 85610; 85730; 93005; 96361; 96365; J3230; J3480; J7030; Q9967

== ENCOUNTER 2017-04-06 13:07 | Emergency (ER) | payer OTHER ==
[~2017-04-06 13:07] MED LIST changes: +CARB100C PO; -DIVA250ER PO; +MIRT1TAB44 PO; +PANT40TA3 PO; -REME30TA2 PO; -RISP2TAB2 PO
[2017-04-06 13:12] VITALS: BP 131/83; PULSE 83; RESP 12; TEMP 98.2; O2SAT 97
--- NOTE | 2017-04-06 15:01 | RADRPT ---
EXAM DATE/TIME: 04/06/2017 14:05 [facility] COMPARISON: No previous studies available for comparison. INDICATIONS : Fell 1 week ago, complains of neck pain, prior cervical fusion RADIATION DOSE: 31.64 CTDIvol (mGy) MEDICAL HISTORY : None SURGICAL HISTORY : None. ENCOUNTER: Initial ACUITY: 1 day PAIN SCALE: 5/10 LOCATION: neck TECHNIQUE: Volumetric scanning of the cervical spine was performed. Multiplanar reconstructions in the sagittal, coronal and oblique axial planes were performed. Using automated exposure control and adjustment o f the mA and/or kV according to patient size, radiation dose was kept as low as reasonably achievable to obtain optimal diagnostic quality images. DICOM format image data is available electronically f or review and comparison. FINDINGS: Sagittal reconstructions show intervertebral disc prostheses at C5-6 with associated regional degener ative changes evident by marginal spurring predominantly directed anteriorly and right lateral. Minim al grade 1 anterolisthesis of C2 on 3 and C3 on 4. Vertebral body heights are maintained without frac ture. Spinal canal is adequate throughout. . C2-C3: The bony spinal canal is normal in size. No evidence of disc bulge or herniation. The neural forami na are bilaterally patent. C3-C4: The bony spinal canal is normal in size. No evidence of disc bulge or herniation. The neural forami na are bilaterally patent. C4-C5: The bony spinal canal is normal in size. No evidence of disc bulge or herniation. The neural forami na are bilaterally patent. C5-C6: Intervertebral disc prostheses with possible partial bony fusion on the right. Uncovertebral ridging most prominent anteriorly and right posterolateral. The posterolateral component narrows the right ne ural foramina and may compromise the right C6 nerve root. Spinal canal and left neural foramina are a dequate. C6-C7: The bony spinal canal is normal in size. No evidence of disc bulge or herniation. The neural forami na are bilaterally patent. C7-T1: The bony spinal canal is normal in size. No evidence of disc bulge or herniation. The neural forami na are bilaterally patent. CONCLUSION: 1. Intervertebral disc prostheses at C5-6 with associated regional degenerative changes as evident by anterior and right lateral uncovertebral ridging. 2. The right lateral ridging at C5-6 encroaches on the neural foramina and may compromise the right C 6 nerve root. 3. Spinal canal and neural foramina are patent at all remaining levels. No fractures. 4. Minimal grade 1 anterolisthesis of C2 on 3 and C3 on 4. Abdulaziz Bernard MD on April 06, 2017 at 14:46 Board Certified Radiologist. This report was verified electronically.
--- NOTE | 2017-04-06 15:55 | PD ---
HPI Chief Complaint: Musculoskeletal Complaint Time Seen by Provider: 15:54 Travel History International Travel<30 days: No Contact w/Intl Traveler<30days: No Traveled to known affect area: No History of Present Illness HPI 36 year old male presents to emergency department complaining of a week of neck pain after a slip and fall that occurred 1 week ago. States that he fell back and his neck 'snapped back'. States that he has moderate pain with neck movement but does have full range of motion. Pain exacerbates with flexion and extension of his neck and decreases with rest. Patient states he is unable take Motrin or Tylenol because he has 'ulcers in the stomach'. States that the pain is burning particularly in the upper portion of his thoracic spine. Patient denies low back pain, fever, chills, IV drug use, loss of bowel or bladder function, saddle anesthesia. Denies loss of consciousness, head trauma , blurred vision, direct neck trauma. Patient has not taken anything for this pain. Patient denies numbness tingling of his extremities. PFSH Past Medical History Arthritis: Yes (possible left knee replacment after approval from [facility]) Asthma: Yes Bipolar Disorder: Yes Anxiety: Yes Depression: Yes Cancer: No Diminished Hearing: No Hypertension: Yes Insomnia: Yes Musculoskeletal: Yes Psychiatric: Yes Reproductive: No (history vasectomy) Immunizations Current: Yes Schizophrenia: Yes Seizures: Yes (as side effect from Tramadol and wellbutrin per pt.) Ulcer: Yes (history stomach ulcer/3 years ago) Past Surgical History Eye Surgery: Yes (reflective eye surgery) Joint Replacement: Yes (metal anchors in right shoulder) Other Surgery: Yes (VASECTOMY) Social History Alcohol Use: Yes Tobacco Use: Yes (1/2 PPD) Substance Use: No Allergies-Medications (Allergen,Severity, Reaction): Coded Allergies: bupropion (Verified Allergy, Severe, 04/06/17) tramadol (Verified Allergy, Severe, 04/06/17) Reported Meds & Prescriptions Reported Meds & Active Scripts Active Robaxin (Methocarbamol) 500 Mg Tab 500 Mg PO TID 5 Days Reported Gillis Carbonate 600 Mg Cap 600 Mg PO BID Review of Systems Except as stated in HPI: all other systems reviewed are Neg Physical Exam Narrative GENERAL: Well developed well nourished SKIN: Focused skin assessment warm/dry. HEAD: Atraumatic. Normocephalic. EYES: Pupils equal and round. No scleral icterus. No injection or drainage. ENT: No nasal bleeding or discharge. Mucous membranes pink and moist. NECK: Trachea midline. No JVD. No tenderness midline Neck and thoracic paraspinous muscles tender to palpation. No step-offs or crepitus noted CARDIOVASCULAR: Regular rate and rhythm. No murmur appreciated. RESPIRATORY: No accessory muscle use. Clear to auscultation. Breath sounds equal bilaterally. GASTROINTESTINAL: Abdomen soft, non-tender, nondistended. Hepatic and splenic margins not palpable. MUSCULOSKELETAL: No obvious deformities. No clubbing. No cyanosis. No edema. Neurovascularly intact No CVA tenderness. NEUROLOGICAL: Awake and alert. No obvious cranial nerve deficits. Motor grossly within normal limits. Normal speech. PSYCHIATRIC: Appropriate mood and affect; insight and judgment normal. Data Data Last Documented VS Vital Signs Date Time Temp Pulse Resp B/P (MAP) Pulse Ox O2 Delivery O2 Flow Rate FiO2 04/06/17 17:23 04/06/17 17:22 20 04/06/17 13:12 98.[address] Cerv Spine W/O Contrast (04/06/17 ) Acetamin-Hydrocod 325-5 Mg ([place] 5-325 (04/06/17 16:15) Orphenadrine Inj (Norflex Inj) (04/06/17 16:15) Ed Discharge Order (04/06/17 16:26) MDM Medical Decision Making Medical Screen Exam Complete: Yes Emergency Medical Condition: Yes Differential Diagnosis whiplash injury versus neck sprain versus neck contusion Narrative Course 36 year old male presents to emergency department complaining of a week of neck pain after a slip and fall that occurred 1 week ago. States that he fell back and his neck 'snapped back'. States that he has moderate pain with neck movement but does have full range of motion. Pain exacerbates with flexion and extension of his neck and decreases with rest. Patient states he is unable take Motrin or Tylenol because he has 'ulcers in the stomach'. States that the pain is burning particularly in the upper portion of his thoracic spine. Patient denies low back pain, fever, chills, IV drug use, loss of bowel or bladder function, saddle anesthesia. Denies loss of consciousness, head trauma , blurred vision, direct neck trauma. Patient has not taken anything for this pain. Patient denies numbness tingling of his extremities. Physical exam demonstrates TTP to paraspinous muscles thoracic and cervical Vital signs stable Imaging study: Norflex and hydrocodone in the ER Patient will be discharged with Robaxin. When the patient the importance of taking this medication to reduce his muscular tension. Plan discharge patient complained of pain and requested hydrocodone for pain. [employer] and EMR consulted. After reviewing records from recent visits in the hospital, there was a visit for substance abuse. Unfortunately, I am uncomfortable giving this patient anything stronger than Robaxin at this time for concern of misuse and abuse. Pt understands will follow up with his primary care physician. Patient to return for worsening symptoms Patient refuses prescription of Robaxin and wanted a stronger medication for pain. Diagnosis Primary Impression: Whiplash injury Qualified Codes: S13.4XXA - Sprain of ligaments of cervical spine, initial encounter Referrals: Primary Care Physician Additional Instructions: Follow-up the primary care physician within 2 days. If you're symptoms persist or worsen return to the emergency department Take medications as prescribed Use caution with muscle relaxers Scripts Methocarbamol (Robaxin) 500 Mg Tab 500 MG PO TID for Muscle Spasm for 5 Days, TAB 0 Refills Prov: Sofi Melgoza MD 04/06/17 Disposition: 01 DISCHARGE HOME Condition: Stable Alysha Fernandez Apr 06, 2017 15:55
[2017-04-06] MEDS ORDERED: ROBA500T PO (16:07)
[2017-04-06] MEDS ORDERED: ACETAMINOPHEN/HYDROcodone 325 MG/5 MG TAB PO ONE (16:15)
[2017-04-06] MEDS ORDERED: ORPHENADRINE INJ 60 MG/2 ML AMP IM ONE (16:15)
[2017-04-06] MEDS ORDERED: LITH600C PO (16:20)
[2017-04-06 17:22] VITALS: RESP 20
== END 2017-04-06 17:49 | disposition home or self-care (01) ==
LOC: NEPK 13:07
DX: S13.4XXA Sprain of ligaments of cervical spine, initial encounter (principal); J45.909 Unspecified asthma, uncomplicated; I10 Essential (primary) hypertension; W01.0XXA Fall on same level from slipping, tripping and stumbling without subsequent striking against object, initial encounter; Z72.0 Tobacco use
CPT/HCPCS: 72125; 96372; 99285; J2360

== ENCOUNTER 2017-04-09 02:04 | Emergency (ER) | payer OTHER ==
[~2017-04-09 02:04] MED LIST changes: -CARB100C PO; -CLON.5 PO; +LITH600C PO; -MIRT1TAB44 PO; -PANT40TA3 PO; +ROBA500T PO
[2017-04-09 02:25] VITALS: BP 144/91; PULSE 74; RESP 14; TEMP 98.8; O2SAT 94; O2SAT 96
--- NOTE | 2017-04-09 02:29 | PD ---
HPI Chief Complaint: Psychiatric Symptoms Time Seen by Provider: 02:22 Travel History International Travel<30 days: No Contact w/Intl Traveler<30days: No History of Present Illness HPI Patient comes in under Young act by police for reportedly taking pills with alcohol and making suicidal comments his family. Patient reports to me that he took tramadol tonight. Denies taking anything else tonight. Patient denies any alcohol use. Patient states he last took lithium and Prozac week and a half ago however had informed the nurse that he took half a bottle of these tonight. Patient is uncertain of the dose. Patient denies any other medical complaints or concerns. Denies anything making symptoms better or worse. Patient is somewhat sleepy on exam and is not a good historian at this time. PFSH Past Medical History Arthritis: Yes (possible left [facility]) Asthma: Yes Bipolar Disorder: Yes Anxiety: Yes Depression: Yes Cancer: No Diminished Hearing: No Hypertension: Yes Insomnia: Yes Musculoskeletal: Yes Psychiatric: Yes Reproductive: No (history vasectomy) Immunizations Current: Yes Schizophrenia: Yes Seizures: Yes (as side effect from Tramadol and wellbutrin per pt.) Ulcer: Yes (history stomach ulcer/3 years ago) Past Surgical History Eye Surgery: Yes (reflective eye surgery) Joint Replacement: Yes (metal anchors in right shoulder) Other Surgery: Yes (VASECTOMY) Social History Alcohol Use: Yes Tobacco Use: Yes (1/2 PPD) Substance Use: No Allergies-Medications (Allergen,Severity, Reaction): Coded Allergies: bupropion (Verified Allergy, Severe, 04/09/17) tramadol (Verified Allergy, Severe, 04/09/17) Reported Meds & Prescriptions Reported Meds & Active Scripts Active Reported [place] Carbonate 600 Mg Cap 600 Mg PO BID Review of Systems ROS Limitations: Poor Historian Except as stated in HPI: all other systems reviewed are Neg Physical Exam Exam Limitations: Poor Historian Narrative GENERAL: Well-developed, well nourished, in no acute distress, and non-ill appearing. SKIN: Focused skin assessment warm and dry. HEAD: Atraumatic. Normocephalic. EYES: Pupils equal and round. EOMI. No scleral icterus. No injection or drainage. ENT: No nasal bleeding or discharge. Mucous membranes pink and moist. NECK: Trachea midline. No JVD. Supple. No nuclear rigidity. CARDIOVASCULAR: Regular rate and rhythm. No murmur appreciated. RESPIRATORY: No accessory muscle use. No respiratory distress. Clear to auscultation. Breath sounds equal bilaterally. MUSCULOSKELETAL: No obvious deformities. No clubbing. No cyanosis. No edema. Full range of motion. NEUROLOGICAL: Awake and alert, but sleepy. No obvious cranial nerve deficits. Motor grossly within normal limits. Normal speech. PSYCHIATRIC: Insight and judgment abnormal. Data Data Last Documented VS Vital Signs Date Time Temp Pulse Resp B/P (MAP) Pulse Ox O2 Delivery O2 Flow Rate FiO2 04/09/17 12:06 99.2 70 18 150/91 (110) 97 Room Air Orders Orders Electrocardiogram (04/09/17 02:21) Complete Blood Count With Diff (04/09/17 02:21) Comprehensive Metabolic Panel (04/09/17 02:21) Prothrombin Time / Inr (Pt) (04/09/17 02:21) Act Partial Throm Time (Ptt) (04/09/17 02:21) Iv Access Insert/Monitor (04/09/17 02:21) Ecg Monitoring (04/09/17 02:21) Oximetry (04/09/17 02:21) Psych Screen (04/09/17 02:21) Sodium Chloride 0.9% Flush (Ns Flush) (04/09/17 02:30) Call Poison Control (04/09/17 02:21) Drug Screen, Random Urine (04/09/17 02:21) Alcohol (Ethanol) (04/09/17 02:21) Salicylates (Aspirin) (04/09/17 02:21) Tylenol (Acetaminophen) (04/09/17 02:21) [place] (Li) (04/09/17 02:21) Sodium Chlor 0.9% 1000 Ml Inj (Ns 1000 M (04/09/17 02:45) [place] (Li) (04/09/17 04:05) Electrocardiogram (04/09/17 ) Electrocardiogram (04/09/17 ) [place] (Li) (04/09/17 06:05) Diet Regular Basic (04/09/17 Dinner) Labs Laboratory Tests Test 04/09/17 02:20 04/09/17 03:20 04/09/17 04:14 04/09/17 06:15 White Blood Count 11.0 TH/MM3 Red Blood Count 5.34 MIL/MM3 Hemoglobin 16.3 GM/DL Hematocrit 45.7 % Mean Corpuscular Volume 85.6 FL Mean Corpuscular Hemoglobin 30.5 PG Mean Corpuscular Hemoglobin Concent 35.6 % Red Cell Distribution Width 13.5 % Platelet Count 309 TH/MM3 Mean Platelet Volume 7.0 FL Neutrophils (%) (Auto) 61.6 % Lymphocytes (%) (Auto) 30.8 % Monocytes (%) (Auto) 4.1 % Eosinophils (%) (Auto) 2.4 % Basophils (%) (Auto) 1.1 % Neutrophils # (Auto) 6.8 TH/MM3 Lymphocytes # (Auto) 3.4 TH/MM3 Monocytes # (Auto) 0.4 TH/MM3 Eosinophils # (Auto) 0.3 TH/MM3 Basophils # (Auto) 0.1 TH/MM3 CBC Comment DIFF FINAL Differential Comment Prothrombin Time 10.7 SEC Prothromb Time International Ratio 1.0 RATIO Activated Partial Thromboplast Time 26.4 SEC Blood Urea Nitrogen 11 MG/DL Creatinine 1.28 MG/DL Random Glucose 105 MG/DL Total Protein 7.9 GM/DL Albumin 4.0 GM/DL Calcium Level 8.0 MG/DL Alkaline Phosphatase 103 U/L Aspartate Amino Transf (AST/SGOT) 26 U/L Alanine Aminotransferase (ALT/SGPT) 45 U/L Total Bilirubin 0.2 MG/DL Sodium Level 142 MEQ/L Potassium Level 3.6 MEQ/L Chloride Level 108 MEQ/L Carbon Dioxide Level 22.7 MEQ/L Anion Gap 11 MEQ/L Estimat Glomerular Filtration Rate 63 ML/MIN Salicylates Level 4.6 MG/DL Acetaminophen Level LESS THAN 2.0 MCG/ML [place] Level 0.1 MEQ/L LESS THAN 0.1 MEQ/L LESS THAN 0.1 MEQ/L Ethyl Alcohol Level 216 MG/DL Urine Opiates Screen NEG Urine Barbiturates Screen NEG Urine Amphetamines Screen NEG Urine Benzodiazepines Screen NEG Urine Cocaine Screen NEG Urine Cannabinoids Screen NEG [facility] Medical Decision Making Medical Screen Exam Complete: Yes Emergency Medical Condition: Yes Interpretation(s) EKG reviewed by Dr. Marlow shows sinus rhythm with ventricular rate of 65. No STEMI. Repeat EKG reviewed by Dr. Marlow shows sinus rhythm with a ventricular rate of 81. No STEMI. Third EKG reviewed by Dr. Marlow shows sinus rhythm with ventricular rate of 70. No STEMI. Differential Diagnosis Intentional overdose, accidental overdose, suicidal, homicidal, alcohol intoxication, lithium toxicity, acute renal injury, other Narrative Course Patient was seen and examined. Labs were obtained and reviewed. Patient medically cleared for further treatment and evaluation by psych. Final disposition per psych. Diagnosis Primary Impression: Alcohol intoxication Qualified Codes: F10.920 - Alcohol use, unspecified with intoxication, uncomplicated Additional Impression: Medical clearance for psychiatric admission Condition: Stable Derick Clemens Apr 09, 2017 02:29
[2017-04-09] MEDS ORDERED: SODIUM CHLORIDE 0.9% FLUSH 10 ML FLUSH IVF PRN (02:30)
[2017-04-09 02:43] VITALS: BP 135/88; PULSE 63; RESP 14; O2SAT 94
[2017-04-09] MEDS ORDERED: SODIUM CHLOR 0.9% 1000 ML INJ 1,000 ML IV ONE (02:45)
[2017-04-09 02:52] LABS: AUTOMATED NEUTROPHIL # 6.8 TH/MM3 (1.8-7.7); BASOPHIL # 0.1 TH/MM3 (0-0.2); BASOPHIL % 1.1 % (0.0-2.0); EOSINOPHIL # 0.3 TH/MM3 (0-0.4); EOSINOPHIL % 2.4 % (0.0-4.0); HEMATOCRIT 45.7 % (39.0-51.0); HEMO FLAGS DIFF FINAL; LYMPH % 30.8 % (9.0-44.0); LYMPHOCYTE # 3.4 TH/MM3 (1.0-4.8); MEAN CELL VOLUME 85.6 FL (80.0-100.0); MEAN CORPUSCULAR HEMOGLOBIN 30.5 PG (27.0-34.0); MEAN CORPUSCULAR HGB CONC 35.6 % (32.0-36.0); MONO % 4.1 % (0.0-8.0); NEUT % 61.6 % (16.0-70.0); PLATELET COUNT 309 TH/MM3 (150-450); RED BLOOD COUNT 5.34 MIL/MM3 (4.50-5.90); RED CELL DISTRIBUTION WIDTH 13.5 % (11.6-17.2)
[2017-04-09 03:05] LABS: APTT (PATIENT) 26.4 SEC (24.3-30.1); PROTHROMBIN TIME - PATIENT 10.7 SEC (9.8-11.6)
[2017-04-09 03:19] LABS: ALKALINE PHOSPHATASE 103 U/L (45-117); TOTAL BILIRUBIN ADULT 0.2 MG/DL (0.2-1.0)
[2017-04-09 03:21] LABS: ACETAMINOPHEN LESS THAN 2.0 MCG/ML (10.0-30.0); ALCOHOL 216 MG/DL (0-5); ALT (GPT) 45 U/L (12-78); ANION GAP 11 MEQ/L (5-15); AST (GOT) 26 U/L (15-37); BICARBONATE 22.7 MEQ/L (21.0-32.0); BLOOD UREA NITROGEN 11 MG/DL (7-18); CHLORIDE 108 MEQ/L (98-107); GLOMERULAR FILTRATION RATE 63 ML/MIN (>89); POTASSIUM 3.6 MEQ/L (3.5-5.1); SODIUM (NA) 142 MEQ/L (136-145)
[2017-04-09 04:15] VITALS: BP 137/91; PULSE 85; RESP 16; O2SAT 95
[2017-04-09 09:55] VITALS: BP 132/76; PULSE 69; RESP 18; O2SAT 98
[2017-04-09 12:06] VITALS: BP 150/91; PULSE 70; RESP 18; TEMP 99.2; O2SAT 97
--- NOTE | 2017-04-09 12:54 | EKG ---
Date Performed: 04/09/2017 Time Performed: 02:27:29 PTAGE: 36 years EKG: Sinus rhythm NONSPECIFIC ST & T-WAVE ABNORMALITY BORDERLINE ECG Compared to PREVIOUS TRACING , sinus arrhythmia is no longer present, otherwise no significant change . PREVIOUS TRACIN03/16/2017 02.41 DOCTOR: Jef Terrell Interpretating Date/Time 04/09/2017 12:52:52
--- NOTE | 2017-04-09 12:55 | EKG ---
Date Performed: 04/09/2017 Time Performed: 06:16:29 PTAGE: 36 years EKG: Sinus rhythm NORMAL ECG Since PREVIOUS TRACING , no significant change noted PREVIOUS TRACIN04/09/2017 04.14 DOCTOR: Jef Terrell Interpretating Date/Time 04/09/2017 12:53:52
--- NOTE | 2017-04-09 12:55 | EKG ---
Date Performed: 04/09/2017 Time Performed: 04:14:30 PTAGE: 36 years EKG: Sinus rhythm NORMAL ECG Compared to PREVIOUS TRACING , T-wave changes slightly improved. PREVIOUS TRACIN04/09/2017 02.27 DOCTOR: Jef Terrell Interpretating Date/Time 04/09/2017 12:53:17
[2017-04-09 19:13] VITALS: BP 144/86; PULSE 78; RESP 20; TEMP 98.5; O2SAT 99
[2017-04-09] MEDS ORDERED: ACETAMINOPHEN 500 MG CPLT PO ONE (22:30)
[2017-04-10 06:11] VITALS: BP 146/78; PULSE 63; RESP 18
[2017-04-10 08:10] VITALS: BP 130/68; PULSE 62; RESP 18; O2SAT 97
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
--- NOTE | 2017-04-10 11:19 | PD ---
Physical Exam Date Seen by Provider: Apr 10, 2017 Narrative 36 y male BA lifted by Dr. Squires. States he will be d/c home to fiance and [facility]. Pt and fiance understand the importance of following up as recommended and will comply. Data Data Last Documented VS Vital Signs Date Time Temp Pulse Resp B/P (MAP) Pulse Ox O2 Delivery O2 Flow Rate FiO2 04/10/17 13:00 04/10/17 08:10 62 18 97 Room Air 04/09/17 19:13 98.5 Orders Orders Electrocardiogram (04/09/17 02:21) Complete Blood Count With Diff (04/09/17 02:21) Comprehensive Metabolic Panel (04/09/17 02:21) Prothrombin Time / Inr (Pt) (04/09/17 02:21) Act Partial Throm Time (Ptt) (04/09/17 02:21) Iv Access Insert/Monitor (04/09/17 02:21) Ecg Monitoring (04/09/17 02:21) Oximetry (04/09/17 02:21) Psych Screen (04/09/17 02:21) Sodium Chloride 0.9% Flush (Ns Flush) (04/09/17 02:30) Call Poison Control (04/09/17 02:21) Drug Screen, Random Urine (04/09/17 02:21) Alcohol (Ethanol) (04/09/17 02:21) Salicylates (Aspirin) (04/09/17 02:21) Tylenol (Acetaminophen) (04/09/17 02:21) [place] (Li) (04/09/17 02:21) Sodium Chlor 0.9% 1000 Ml Inj (Ns 1000 M (04/09/17 02:45) [place] (Li) (04/09/17 04:05) Electrocardiogram (04/09/17 ) Electrocardiogram (04/09/17 ) [place] (Li) (04/09/17 06:05) Diet Regular Basic (04/09/17 Dinner) Acetaminophen (Tylenol) (04/09/17 22:30) Diet Regular Basic (04/10/17 Breakfast) Ed Discharge Order (04/10/17 11:19) Labs Laboratory Tests Test 04/09/17 02:20 04/09/17 03:20 04/09/17 04:14 04/09/17 06:15 White Blood Count 11.0 TH/MM3 Red Blood Count 5.34 MIL/MM3 Hemoglobin 16.3 GM/DL Hematocrit 45.7 % Mean Corpuscular Volume 85.6 FL Mean Corpuscular Hemoglobin 30.5 PG Mean Corpuscular Hemoglobin Concent 35.6 % Red Cell Distribution Width 13.5 % Platelet Count 309 TH/MM3 Mean Platelet Volume 7.0 FL Neutrophils (%) (Auto) 61.6 % Lymphocytes (%) (Auto) 30.8 % Monocytes (%) (Auto) 4.1 % Eosinophils (%) (Auto) 2.4 % Basophils (%) (Auto) 1.1 % Neutrophils # (Auto) 6.8 TH/MM3 Lymphocytes # (Auto) 3.4 TH/MM3 Monocytes # (Auto) 0.4 TH/MM3 Eosinophils # (Auto) 0.3 TH/MM3 Basophils # (Auto) 0.1 TH/MM3 CBC Comment DIFF FINAL Differential Comment Prothrombin Time 10.7 SEC Prothromb Time International Ratio 1.0 RATIO Activated Partial Thromboplast Time 26.4 SEC Blood Urea Nitrogen 11 MG/DL Creatinine 1.28 MG/DL Random Glucose 105 MG/DL Total Protein 7.9 GM/DL Albumin 4.0 GM/DL Calcium Level 8.0 MG/DL Alkaline Phosphatase 103 U/L Aspartate Amino Transf (AST/SGOT) 26 U/L [place] Aminotransferase (ALT/SGPT) 45 U/L Total Bilirubin 0.2 MG/DL Sodium Level 142 MEQ/L Potassium Level 3.6 MEQ/L Chloride Level 108 MEQ/L Carbon Dioxide Level 22.7 MEQ/L Anion Gap 11 MEQ/L Estimat Glomerular Filtration Rate 63 ML/MIN Salicylates Level 4.6 MG/DL Acetaminophen Level LESS THAN 2.0 MCG/ML [place] Level 0.1 MEQ/L LESS THAN 0.1 MEQ/L LESS THAN 0.1 MEQ/L Ethyl Alcohol Level 216 MG/DL Urine Opiates Screen NEG Urine Barbiturates Screen NEG Urine Amphetamines Screen NEG Urine Benzodiazepines Screen NEG Urine Cocaine Screen NEG Urine Cannabinoids Screen NEG MDM Supervised Visit with LISA: Yes Diagnosis Primary Impression: Posttraumatic stress disorder Condition: Stable Alysha Fernandez Apr 10, 2017 11:19
== END 2017-04-10 13:49 | disposition home or self-care (01) ==
LOC: NEPD 02:04 → NEPJ 04-10 13:49
DX: F10.920 Alcohol use, unspecified with intoxication, uncomplicated (principal); R94.31 Abnormal electrocardiogram [ECG] [EKG]; F43.10 Post-traumatic stress disorder, unspecified; J45.909 Unspecified asthma, uncomplicated; I10 Essential (primary) hypertension; Z72.0 Tobacco use
CPT/HCPCS: 80053; 80178; 80307; 85025; 85610; 85730; 93005; 96360; 99284; J7030

== ENCOUNTER 2017-06-21 11:25 | Emergency (ER) | payer OTHER ==
[2017-06-21] MEDS: IOHEXOL 350 MG/ML 10 ML VIAL (for RAD DIAG) IVCONTRAST (11:26)
[2017-06-21 12:07] LABS: AUTOMATED NEUTROPHIL # 10.6 TH/MM3 (1.8-7.7); BASOPHIL # 0.1 TH/MM3 (0-0.2); BASOPHIL % 0.9 % (0.0-2.0); EOSINOPHIL # 0.4 TH/MM3 (0-0.4); HEMATOCRIT 41.1 % (39.0-51.0); HEMO FLAGS DIFF FINAL; HEMOGLOBIN 14.3 GM/DL (13.0-17.0); LYMPH % 13.2 % (9.0-44.0); LYMPHOCYTE # 1.8 TH/MM3 (1.0-4.8); MEAN CELL VOLUME 84.4 FL (80.0-100.0); MEAN CORPUSCULAR HEMOGLOBIN 29.4 PG (27.0-34.0); MEAN CORPUSCULAR HGB CONC 34.8 % (32.0-36.0); MEAN PLATELET VOLUME 6.5 FL (7.0-11.0); MONO % 4.6 % (0.0-8.0); MONOCYTE # 0.6 TH/MM3 (0-0.9); NEUT % 78.3 % (16.0-70.0); PLATELET COUNT 265 TH/MM3 (150-450); RED BLOOD COUNT 4.87 MIL/MM3 (4.50-5.90); RED CELL DISTRIBUTION WIDTH 13.5 % (11.6-17.2); WHITE BLOOD COUNT 13.6 TH/MM3 (4.0-11.0)
[2017-06-21 12:39] LABS: ALT (GPT) 35 U/L (12-78); ANION GAP 8 MEQ/L (5-15); AST (GOT) 18 U/L (15-37); BICARBONATE 23.2 MEQ/L (21.0-32.0); CALCIUM 8.4 MG/DL (8.5-10.1); CHLORIDE 108 MEQ/L (98-107); CREATININE 1.03 MG/DL (0.60-1.30); GLOMERULAR FILTRATION RATE 81 ML/MIN (>89); GLUCOSE,RANDOM 85 MG/DL (74-106); LIPASE 91 U/L (73-393); POTASSIUM 3.4 MEQ/L (3.5-5.1); SODIUM (NA) 139 MEQ/L (136-145)
[2017-06-21 12:43] LABS: ALKALINE PHOSPHATASE 81 U/L (45-117); BLOOD UREA NITROGEN 4 MG/DL (7-18); TOTAL BILIRUBIN ADULT 0.2 MG/DL (0.2-1.0); TOTAL PROTEIN 7.3 GM/DL (6.4-8.2)
[2017-06-21] MEDS: KETOROLAC TROMETHAMINE 30 MG/ML (IVP) VIAL IV PUSH (13:33)
[2017-06-21] MEDS: SODIUM CHLOR 0.9% 1000 ML INJ 1,000 ML IV (13:33)
[2017-06-21 13:48] LABS: BACTERIA, URINE RARE /hpf; BILIRUBIN, URINE NEG (NEG); BLOOD, URINE NEG (NEG); GLUCOSE,URINE NEG (NEG); HYALINE CAST, URINE 3 /lpf (RARE); KETONE, URINE NEG (NEG); MUCUS URINE FEW /lpf (OCC); NITRITE,URINE NEG (NEG); PH, URINE 5.5 (5.0-8.5); SQUAMOUS EPITHELIAL CELL URINE <1 /hpf (0-5); URINE COLOR YELLOW (YELLW/STRAW); URINE LEUKOCYTE ESTERASE NEG (NEG)
[2017-06-21 13:49] LABS: COMMENT (UR) CULT NOT INDICATED; CULTURE IF INDICATED CULT NOT INDICATED
[2017-06-21] MEDS: ACETAMINOPHEN 1000 MG/100 ML 100 ML IV (14:27)
== END 2017-06-21 15:30 | disposition home or self-care (01) ==
LOC: NEPD 15:30
DX: R10.32 Left lower quadrant pain (principal); J45.909 Unspecified asthma, uncomplicated; I10 Essential (primary) hypertension; F20.9 Schizophrenia, unspecified; Z72.0 Tobacco use
CPT/HCPCS: 74177; 80053; 81001; 83690; 85025; 96361; 96365; 96375; 99285-25